=== PATIENT | female | born 1985 | race Two or more races ===

== ENCOUNTER 2019-12-28 11:14 | Outpatient (REF) | payer OTHER, SELFPAY ==
--- NOTE | 2019-12-28 11:20 | US_ITS ---
EXAMINATION: ULTRASOUND RIGHT UPPER EXTREMITY VENOUS STUDY. CLINICAL INFORMATION: Soft tissue swelling and pain. COMPARISON: None TECHNIQUE: Routine grayscale, color and Doppler imaging of right upper extremity veins performed. FINDINGS: There is normal color flow and augmentation seen in the right internal jugular, subclavian, axillary, brachial, basilic and cephalic veins. The radial and the ulnar veins are patent as well. The soft tissues are normal. US/US venous duplex UE RT IMPRESSION: Normal right upper extremity venous study. No evidence of DVT.
== END 2019-12-28 11:15 | disposition home or self-care (01) ==
LOC: HO.HMGCX 11:14
PROVIDERS: PCP Internal Medicine; Visit Provider Nurse Practitioner Family
DX: M79.89 Other specified soft tissue disorders (principal)
CPT/HCPCS: 93971

== ENCOUNTER 2020-02-25 17:18 | Outpatient (REF) | payer OTHER, SELFPAY | END 2020-02-25 17:19 | disposition home or self-care (01) | LOC: HO.LAB 17:18 | PROVIDERS: Visit Provider Internal Medicine | DX: Z20.828 Contact with and (suspected) exposure to other viral communicable diseases (principal) | CPT/HCPCS: C9803; U0003 ==

== ENCOUNTER 2020-03-12 09:31 | Outpatient (REF) | payer OTHER, SELFPAY | END 2020-03-12 09:32 | disposition home or self-care (01) | LOC: HO.LAB 09:31 | PROVIDERS: PCP Internal Medicine; Visit Provider Internal Medicine | DX: Z20.828 Contact with and (suspected) exposure to other viral communicable diseases (principal) | CPT/HCPCS: 36415; C9803; U0003 ==

== ENCOUNTER 2020-04-17 07:58 | Outpatient (REF) | payer OTHER, SELFPAY ==
--- NOTE | 2020-04-17 08:01 | EMG_ITS ---
Right median and ulnar motor and sensory studies were performed. Right radial sensory study was performed. Paraspinal muscles were tested. 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 MD ARIE Crane/BETZY / [id number]
== END 2020-04-17 07:59 | disposition home or self-care (01) ==
LOC: HO.NEURO 07:58
PROVIDERS: PCP Internal Medicine; Visit Provider Internal Medicine
DX: M79.641 Pain in right hand (principal)
CPT/HCPCS: 95886; 95909

== ENCOUNTER 2020-06-18 12:55 | Outpatient (REF) | payer OTHER, SELFPAY ==
[2020-06-18 13:37] LABS: COVID-19 Test Negative (Negative); IDNOW Serial# 55D5AD1C
== END 2020-06-18 12:56 | disposition home or self-care (01) ==
LOC: HO.LAB 12:55
PROVIDERS: Visit Provider Internal Medicine
DX: Z20.822 Contact with and (suspected) exposure to COVID-19 (principal)
CPT/HCPCS: 36415; 87635; C9803

== ENCOUNTER 2020-09-24 09:05 | Outpatient (REF) | payer OTHER, SELFPAY ==
[2020-09-24 09:44] LABS: MANUAL DIFF FLAG NO
[2020-09-24 09:53] LABS: Glucose Urine UA NEG (NEG); Leukocyte Esterase Urine NEG (NEG); Nitrite Urine NEG (NEG); PH 7.5 (5.0-8.0); Specific Gravity - Urine 1.015 (1.005-1.025); Urine Blood NEG (NEG); Urine Ketones NEG (NEG); Urine Protein NEG (NEG-TRACE)
[2020-09-24 09:53] LABS: Basophils Percent Auto 0.7 % (0-2); Eosinophils Absolute Auto 0.1 X10*3/uL (0.0-0.4); Eosinophils Percent Auto 1.1 % (0-4); Hematocrit 38.8 % (37-47); Hemoglobin 12.1 g/dl (12.0-16.0); Imm Gran Abs Auto 0.01 X10*3/uL (0.00-0.03); Imm Gran Pct Auto 0.2 % (0.0-0.4); Lymphocytes Absolute Auto 1.2 X10*3/uL (1.2-4.9); Lymphocytes Percent Auto 21.4 % (20-40); Mean Corpuscular HGB Conc 31.2 g/dl (31.0-35.0); Mean Corpuscular Hemoglobin 27.8 pg (27.0-33.0); Mean Platelet Volume 10.4 fL (9.4-12.3); Monocytes Absolute Auto 0.4 X10*3/uL (0.1-1.2); Monocytes Percent Auto 7.7 % (2-11); Neutrophils Absolute Auto 3.9 X10*3/uL (2.0-8.3); Neutrophils Percent Auto 68.9 % (45-73); Platelet Count 339 X10*3/uL (160-400); Red Blood Count 4.36 X10*6/uL (4.20-5.50); Red Cell Distribution Width 14.6 % (11.0-16.0); White Blood Count 5.6 X10*3/uL (4.8-10.8)
[2020-09-24 09:54] LABS: Appearance Urine CLEAR; Color Urine YELLOW
[2020-09-24 10:01] LABS: RBC Urine 0 /HPF (0); Squamous Epithelial Cell Urine TRACE /LPF; WBC Urine 0 /HPF (0-4)
[2020-09-24 10:04] LABS: Estimated Average Glucose 114 mg/dL; Hemoglobin A1c % 5.6 %
[2020-09-24 10:35] LABS: Alanine Aminotransferase 11 U/L (0-31); Albumin Level 4.1 g/dL (3.5-5.0); Alkaline Phosphatase 78 U/L (39-117); Anion Gap 11 (12-20); Aspartate Amino Transferase 13 U/L (5-31); Bilirubin Total 0.4 mg/dL (0.0-1.0); Blood Urea Nitrogen 8 mg/dL (9-16); Calcium 9.1 mg/dL (8.4-10.2); Carbon Dioxide 29 mmol/L (22-29); Chloride 104 mmol/L (96-108); Cholesterol 229 mg/dL; Estimated Glomerular Filt Rate > 60; Glucose Random 98 mg/dL (60-115); HDL Cholesterol 51 mg/dL; LDL Cholesterol Calculated 162 mg/dl; Sodium 140 mmol/L (135-145); Total Protein 7.5 g/dL (6.5-8.0); Triglycerides 82 mg/dL
[2020-09-24 11:01] LABS: Free T4 (Free Thyroxine) 0.91 ng/dL (0.71-1.85); Thyroid Stimulating Hormone 0.61 uIU/mL (0.32-4.0)
[2020-09-24 12:11] LABS: Vitamin D 25-OH Total 14.6 ng/mL (>30)
[2020-09-24 17:39] LABS: Folate 13.8 ng/mL (> or = 4.0); Vitamin B12 338 pg/mL (200-900)
== END 2020-09-24 09:06 | disposition home or self-care (01) ==
LOC: HO.LAB 09:05
PROVIDERS: PCP Internal Medicine; Visit Provider Internal Medicine
DX: E78.00 Pure hypercholesterolemia, unspecified (principal); R35.0 Frequency of micturition; E53.8 Deficiency of other specified B group vitamins; I10 Essential (primary) hypertension
CPT/HCPCS: 36415; 80053; 80061; 81001; 82306; 82607; 82746; 83036; 84439; 84443; 85025

== ENCOUNTER 2020-12-07 09:22 | Emergency (ER) | payer OTHER, SELFPAY ==
[2020-12-07 11:00] VITALS: BP 150/85; PULSE 82; RESP 18; TEMP 36.8; O2SAT 100; BMI 37.2
--- NOTE | 2020-12-07 11:38 | ED_ITS ---
HPI - General Adult General Chief complaint: General Medical Stated complaint: sore throat Time Seen by Provider: 12/07/20 10:55 Source: patient Mode of arrival: ambulatory Limitations: no limitations History of Present Illness HPI narrative: 35 y/o female with history of asthma, obesity, HTN, HLD who presents to the ER with 3 days of sore throat and not feeling well. She was not able to sleep well last night because she felt like there was a lump in her throat which got her scared. She denies trouble swallowing, breathing or talking. No change in voice. She is unvaccinated against COVID-19. She gets weekly tests at work and was last negative 3 days ago. No cough or SOB. No fever or chills. MD complaint: sore throat Onset (ago): day(s) (3) Location: mouth and neck Radiation: non-radiation Severity: moderate Severity scale (1-10): 5 Quality: aching Pain Consistency: intermittent Relieving factors: none Exacerbating factors: eating Associated symptoms: malaise Treatments prior to arrival: none Related Data Home Medications Medication Instructions Recorded Confirmed propranolol 10 mg tablet 10 mg PO BID 12/28/19 09/15/20 Previous Rx's Medication Instructions Recorded loratadine 10 mg tablet 10 mg PO DAILY #30 tab 02/25/20 albuterol sulfate 90 mcg/actuation 2 puff PO Q6H PRN #8.5 g 02/26/20 aerosol inhaler Allergies Allergy/AdvReac Type Severity Reaction Status Date / Time Seasonal Allergies Allergy Unknown Swelling Uncoded 01/28/20 13:13 Review of Systems Review of Systems: Constitutional: No Fever, No Chills ENT/Mouth: + sore throat, No Rhinorrhea, No Swallowing Difficulty Cardiovascular: No Chest Pain, No SOB Respiratory: No Cough, No Sputum, No Wheezing, No dyspnea Gastrointestinal: No Nausea, No Vomiting, No Diarrhea, No abdominal Paina Musculoskeletal: No joint pain, No Myalgias Skin: No Skin Lesions, No rash Neuro: No Weakness, No Numbness, No Dizziness, No Headache Psych: + Anxiety/Panic Heme/Lymph: No Bruising, No Lymphadenopathy PMFSH Past Medical History Medical History (Updated 12/07/20 @ 12:22 by SILVINO Felder) Allergic rhinitis Anxiety Asthma Hypercholesterolemia Hypertension Migraine Obesity (BMI 30-39.9) Somnambulism Vitamin D deficiency Surgical History H/O breast biopsy History of section History of tonsillectomy and adenoidectomy History of tubal ligation Family History Family History (Updated 01/23/20 @ 12:15 by EDUARDA Jang) Father No problems noted. Mother Hypertension CVD (cardiovascular disease) Diabetes Maternal Grandmother Lung cancer Maternal Aunt Breast cancer Social History Social History (Updated 09/15/20 @ 14:13 by Buck Monson MD) Housing: Apartment Alcohol intake: never Patient Tobacco Use Status: Never used Tobacco e-Cigarette/Vaping Use: Never Used Second Hand Smoke Exposure: No Advance Directives: No Advance Directives Information Provided: No Patient : No service: No Current occupational status: employed Physical Exam Vital Signs: Vital Signs: Last Vital Signs Temp 98.3 F 12/07/20 11:00 Pulse 82 12/07/20 11:00 Resp 18 12/07/20 11:00 BP 150/85 H 12/07/20 11:00 Pulse Ox 100 12/07/20 11:00 Body Mass Index 37.2 Appearance: Alert. Oriented X3. No acute distress. Eyes: Pupils equal, round and reactive to light. ENT: Pharynx with bilateral tonsillar swelling, mild erythema, no exudates, uvula is midline, moist mucus membranes. Neck: Normal inspection. Neck supple. No LAD CVS: Normal heart rate and rhythm. Pulses normal. Respiratory: No respiratory distress. Breath sounds normal. Skin: Skin warm and dry. Normal skin color. Normal skin turgor. No rashes. Extremities: No lower extremity edema. Neuro: Oriented X 3. Nonfocal Course Course Course Narrative: 35 y/o female who presents to the ER with 3 days of sore throat. Last night had sensation of a lump in her throat last night, now improved. Normal voice. Tonsils slightly enlarged on exam but no evidence of abscess. She is nontoxic appearing. COVID and Strep are pending. Reevaluation(s) Reevaluation #1: COVID and strep are negative. Most likely viral pharyngitis. Discussed management and course with patient - she is stable for discharge with supportive care. Medical Decision Making Lab Data Labs: Lab Results 12/07/20 12/07/20 Range/Units 11:22 11:22 COVID-19 (PAULINE) Negative (Negative) COVID-19 Clin Com See Note S. pyogenes GrpA HARLEY Negative (Negative) Critical Care Time Critical Care Time Critical Care Time: No Discharge Plan Discharge Clinical Impression: Pharyngitis Qualifiers: Pharyngitis/tonsillitis etiology: unspecified etiology Qualified Code(s): J02.9 - Acute pharyngitis, unspecified Patient Disposition: Home, Self-Care Instructions: Pharyngitis (ED) Additional Instructions: You were negative for COVID and Strep throat today. Recommend gargling with warm salt water several times per day Recommend over the counter Chloraseptic spray to help with sore throat Take Motrin and/or Tylenol as needed for pain. Follow up with your doctor this week as needed. If you develop new or worsening symptoms call 911 or come back to the ER for fur ther evaluation. Prescriptions: No Action loratadine 10 mg tablet 10 mg PO DAILY Qty: 30 RF: 5 albuterol sulfate 90 mcg/actuation HFA aerosol inhaler 2 puff PO Q6H PRN (Reason: bronchospasm) Qty: 8.5 RF: 0 propranolol 10 mg tablet 10 mg PO BID RF: 0
[2020-12-07 11:42] LABS: COVID-19 Test Negative (Negative)
[2020-12-07 12:18] LABS: IDNOW Serial# 9DD0AD1C; Strep A Nucleic Acid Negative (Negative)
== END 2020-12-07 12:42 | disposition home or self-care (01) ==
PROVIDERS: Emergency Provider Internal Medicine; PCP Internal Medicine
DX: J02.9 Acute pharyngitis, unspecified (principal); R53.81 Other malaise; Z79.899 Other long term (current) drug therapy; Z20.822 Contact with and (suspected) exposure to COVID-19
CPT/HCPCS: 36415; 87635; 87651; 99282; 99283

== ENCOUNTER → 2020-12-16 10:53 | Outpatient (BNVA) | payer OTHER, SELFPAY | PROVIDERS: PCP Internal Medicine; Referring Provider Internal Medicine; Visit Provider Nurse Practitioner Family | DX: G47.19 Other hypersomnia (principal); R06.83 Snoring; F51.3 Sleepwalking [somnambulism] | CPT/HCPCS: 99202 ==

== ENCOUNTER 2021-03-09 00:26 | Emergency (ER) | payer OTHER, SELFPAY ==
[2021-03-09 00:29] VITALS: BP 170/77; PULSE 86; RESP 18; TEMP 36.9; O2SAT 97; BMI 36.3
--- NOTE | 2021-03-09 00:32 | ECG_ITS ---
Test Reason : CHEST PAIN Blood Pressure : / mmHG Vent. Rate : 087 BPM Atrial Rate : 087 BPM P-R Int : 172 ms QRS Dur : 076 ms QT Int : 400 ms P-R-T Axes : 032 021 016 degrees QTc Int : 481 ms Normal sinus rhythm Prolonged QT Abnormal ECG When compared with ECG of 21-APR-2016 21:29, No significant change was found Referred By: Generic ED Physician Electronically Signed By:LUIGI LYNN MD
--- NOTE | 2021-03-09 00:35 | PC.NURSE ---
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
[2021-03-09 00:55] LABS: COVID-19 Test Positive (Negative); IDNOW Serial# 9DD0AD1C
== END 2021-03-09 02:55 | disposition left against medical advice (07) ==
PROVIDERS: Emergency Provider Emergency Medicine; PCP Internal Medicine
DX: U07.1 COVID-19 (principal); R20.0 Anesthesia of skin; R42 Dizziness and giddiness
CPT/HCPCS: 36415; 87635; 93005; 99282; 99283

== ENCOUNTER 2021-09-30 08:16 | Outpatient (REF) | payer OTHER, SELFPAY ==
[2021-09-30 08:36] LABS: MANUAL DIFF FLAG NO
[2021-09-30 08:48] LABS: Basophils Percent Auto 0.2 % (0-2); Eosinophils Absolute Auto 0.1 X10*3/uL (0.0-0.4); Hematocrit 35.4 % (37.0-47.0); Hemoglobin 11.2 g/dl (12.0-16.0); Imm Gran Abs Auto 0.01 X10*3/uL (0.00-0.03); Imm Gran Pct Auto 0.1 % (0.0-0.4); Lymphocytes Absolute Auto 1.2 X10*3/uL (1.2-4.9); Lymphocytes Percent Auto 13.5 % (20-40); Mean Corpuscular HGB Conc 31.6 g/dl (31.0-35.0); Mean Corpuscular Hemoglobin 27.8 pg (27.0-33.0); Mean Corpuscular Volume 87.8 fL (80.0-98.0); Mean Platelet Volume 10.6 fL (9.4-12.3); Monocytes Absolute Auto 0.5 X10*3/uL (0.1-1.2); Monocytes Percent Auto 5.9 % (2-11); Neutrophils Percent Auto 79.3 % (45-73); Platelet Count 346 X10*3/uL (160-400); Red Blood Count 4.03 X10*6/uL (4.20-5.50); Red Cell Distribution Width 16.8 % (11.0-16.0); Retic HGB Equivalent 27.4 pg (30.0-35.0); Reticulocyte Percent 1.5 % (0.5-1.8); Reticulocytes Absolute 0.058 X10*6/uL (0.026-0.095); White Blood Count 8.8 X10*3/uL (4.8-10.8)
[2021-09-30 09:00] LABS: Estimated Average Glucose 105 mg/dL; Hemoglobin A1c % 5.3 %
[2021-09-30 09:41] LABS: Alanine Aminotransferase 13 U/L (0-31); Albumin Level 3.6 g/dL (3.5-5.0); Alkaline Phosphatase 75 U/L (39-117); Anion Gap 11 (12-20); Aspartate Amino Transferase 10 U/L (5-31); Bilirubin Total 0.4 mg/dL (0.0-1.0); Blood Urea Nitrogen 12 mg/dL (9-16); Calcium 8.8 mg/dL (8.4-10.2); Carbon Dioxide 31 mmol/L (22-29); Chloride 101 mmol/L (96-108); Cholesterol 159 mg/dL; Estimated Glomerular Filt Rate > 60; Glucose Random 115 mg/dL (60-115); HDL Cholesterol 40 mg/dL; Iron 23 mcg/dL (30-160); LDL Cholesterol Calculated 103 mg/dl; Percent Iron Saturation 7 % (15-50); Potassium 3.6 mmol/L (3.3-5.1); Sodium 139 mmol/L (135-145); Total Iron Binding Capacity 349 mcg/dL (228-428); Total Protein 6.8 g/dL (6.5-8.0); Triglycerides 83 mg/dL; Unsaturated Iron Binding 326 ug/dL
[2021-09-30 09:49] LABS: Ferritin 25 ng/mL (10-122); Free T4 (Free Thyroxine) 0.92 ng/dL (0.71-1.85); Thyroid Stimulating Hormone 0.41 uIU/mL (0.32-4.0); Vitamin D 25-OH Total 37.5 ng/mL (>30)
[2021-09-30 10:03] LABS: Folate > 20.0 ng/mL (> or = 4.0); Vitamin B12 724 pg/mL (200-900)
== END 2021-09-30 08:17 | disposition home or self-care (01) ==
LOC: HO.LAB 08:16
PROVIDERS: PCP Internal Medicine; Visit Provider Internal Medicine
DX: H11.89 Other specified disorders of conjunctiva (principal); E78.00 Pure hypercholesterolemia, unspecified
CPT/HCPCS: 36415; 80053; 80061; 82306; 82607; 82728; 82746; 83036; 83540; 84439; 84443; 85025; 85045

== ENCOUNTER 2021-10-14 10:10 | Outpatient (REF) | payer OTHER, SELFPAY ==
[2021-10-14 10:39] LABS: Binax Internal Control QC Valid; Binax Now Covid-19 Ag Negative (Negative)
== END 2021-10-14 10:11 | disposition home or self-care (01) ==
LOC: HO.HMGCLDS 10:10
PROVIDERS: PCP Internal Medicine; Visit Provider Physician Assistant
DX: Z20.822 Contact with and (suspected) exposure to COVID-19 (principal); J02.9 Acute pharyngitis, unspecified
CPT/HCPCS: 87811; C9803

== ENCOUNTER 2022-04-20 07:42 | Outpatient (REF) | payer OTHER, SELFPAY ==
[2022-04-20 09:22] LABS: Hematocrit 34.2 % (37.0-47.0); Hemoglobin 10.7 g/dl (12.0-16.0); Mean Corpuscular HGB Conc 31.3 g/dl (31.0-35.0); Mean Corpuscular Volume 83.2 fL (80.0-98.0); Mean Platelet Volume 10.9 fL (9.4-12.3); Platelet Count 373 X10*3/uL (160-400); Red Blood Count 4.11 X10*6/uL (4.20-5.50); Red Cell Distribution Width 15.9 % (11.0-16.0); White Blood Count 8.2 X10*3/uL (4.8-10.8)
[2022-04-20 10:37] LABS: HCG Quantitative < 2 mIU/mL; TSH reflex Free T4 0.86 uIU/mL (0.32-4.0)
[2022-04-20 15:43] LABS: CT PCR NOT DETECTED (Not Detect.); NG PCR NOT DETECTED (Not Detect.)
[2022-04-21 04:24] LABS: Syphilis Screen Nonreactive (Nonreactive)
[2022-04-21 04:38] LABS: HBsAGNum1 0.26 S/CO (0.00-0.99); HIV AB/AG Nonreactive (Nonreactive); HIV Num 1 0.06 S/CO (0.00-0.99); Hepatitis B Surface Antigen Negative (Negative); ~HepC Num1 0.11 S/CO (0.00-0.79); ~Hepatitis C Antibody Nonreactive (Nonreactive)
[2022-04-21 09:06] LABS: BV Int Neg Control Negative (Negative)
[2022-04-21 09:07] LABS: BV Int Pos Control Positive (Positive)
[2022-04-22 09:39] LABS: HPV mRNA E6/E7 rflx Not Detected (Not Detected)
== END 2022-04-20 07:43 | disposition home or self-care (01) ==
LOC: HO.LAB 07:42
PROVIDERS: PCP Internal Medicine; Visit Provider Obstetrics & Gynecology
DX: Z01.419 Encounter for gynecological examination (general) (routine) without abnormal findings (principal); Z11.51 Encounter for screening for human papillomavirus (HPV); Z11.4 Encounter for screening for human immunodeficiency virus [HIV]; Z11.3 Encounter for screening for infections with a predominantly sexual mode of transmission; N93.9 Abnormal uterine and vaginal bleeding, unspecified
CPT/HCPCS: 0353U; 36415; 84443; 84702; 85027; 86780; 86803; 87340; 87389; 87480; 87510; 87624; 87660; 88142

== ENCOUNTER 2022-09-24 08:32 | Outpatient (AMB) | payer OTHER, SELFPAY ==
--- NOTE | 2022-09-24 08:51 | MHC.PC.OV ---
Vital Signs 09/24/22 08:52 Height 5 ft 3 in Weight 149 lb 4 oz BMI 26.4 BP 118/74 Blood Pressure Location Rt brachial Position Sitting Pulse 74 Pulse Source Pulse Oximeter Pulse Oximetry (%) 98 Intake Visit Reasons: Annual Exam Intake Note: pt is here for annual exam Accompanied by: Self / Same As Patient Allergies Seasonal Allergies Allergy (Unknown, Uncoded 09/24/22 08:54) Swelling Medication List - Last Reconciled 09/24/22 by Buck Monson MD albuterol sulfate 90 mcg/actuation 2 puffs PO Q6H PRN ascorbate calcium (vitamin C) 500 mg PO DAILY fexofenadine (Vijaya Allergy) 180 mg PO DAILY fluticasone propionate 50 mcg/actuation (Allergy Relief (fluticasone)) 2 sprays intranasal DAILY 1 month propranolol 10 mg PO BID Tobacco use date assessed: 09/24/22 Dental Screening Dental Screen Date: 09/24/22 Did you have a dental visit in the last 12 months?: No Did you have a dental problem in the last 6 months where you did not have access to dental care?: No Was dental information given to patient?: Patient declined HPI Annual Exam HPI Details 37-year-old obese female with hypertension asthma hypercholesterolemia coming in for physical exam. Last seen in September 2021. Patient has lost a lot a weight. Weight loss on diet. knee pain better noted 60 lb weight loss PFSH Medical History (Updated 09/24/22 @ 09:41 by Buck Monson MD) Abnormal uterine bleeding (AUB) Allergic rhinitis Alteration in vision Anxiety Arm pain, right Arm swelling Asthma Cervical cancer screening Dizziness Hypercholesterolemia Hypertension Left ear pain Migraine Obesity (BMI 30-39.9) Otitis media Pale conjunctiva Screen for STD (sexually transmitted disease) Snoring Somnambulism Tendonitis Vitamin D deficiency Well woman exam Surgical History H/O breast biopsy History of section History of tonsillectomy and adenoidectomy History of tubal ligation Family History Father No problems noted. 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 1. Little interest or pleasure in doing things: not at all 2. Feeling down, depressed, or hopeless: not at all 3. Trouble falling or staying asleep, or sleeping too much: not at all 4. Feeling tired or having little energy: not at all 5. Poor appetite or overeating: not at all 6. Feeling bad about yourself - or that you are a failure or have let yourself or your family down: not at all 7. Trouble concentrating on things, such as reading the newspaper or watching television: not at all 8. Moving or speaking so slowly that other people could have noticed. Or the opposite - being so fidgety or restless that you have been moving around a lot more than usual: not at all 9. Thoughts that you would be better off or of hurting yourself in some way: not at all Total score: 0 Depression Screening Interpretation: Negative 78256 - PHQ-9 Billing: Yes Source: Developed by Drs. Bharath Stokes, Theresa Junior, Marcos Hewitt and colleagues, with an educational lisbeth from [employer]. Thrive Questionnaire Date Thrive assessed: 09/24/22 I am a: Patient What is your living situation today?: I have a steady place to live Within the past 12 months, did the food you bought not last and you didn't have the money to get more?: Never true Within the past 12 months, did you worry whether your food would run out before you got money to buy more?: Never true Do you have trouble paying for medicines?: No Do you have trouble getting transportation to medical appointments?: No Do you have trouble paying your heating and electricity bill?: No Do you have trouble taking care of your child, family member or friend?: No Do you have trouble with day-to-day activities such as bathing, preparing meals, shopping, managing finances, etc.?: No Are you currently unemployed and looking for a job?: No Are you interested in more education?: No Please select the resources that you would like help with: None Currently or been in a relationship where the following occur: no concerns reported KELLY-7 AMB Questionnaire KELLY-7 Date KELLY - 7 assessed: 09/24/22 Feeling nervous, anxious, or on edge: 0 = Not at all Not being able to stop or control worryin = Not at all Worrying too much about different things: 0 = Not at all Trouble relaxin = Not at all Being so restless that it is hard to sit still: 0 = Not at all Becoming easily annoyed or irritable: 0 = Not at all Feeling afraid as if something awful might happen: 0 = Not at all Total KELLY-7 score (0-4 normal; 5-9 mild; 10-14 moderate; 15-21 severe): 0 Source: Developed by Drs. Bharath Stokes, Theresa Junior, Marcos Hewitt and colleagues, with an educational lisbeth from [employer]. Review of Systems Const Denies poor appetite and Denies weakness Eyes Denies no additional complaints ENT Reports Normal hearing present, Denies dizziness, Denies nasal congestion, Denies tinnitus and Denies sore throat Card Denies chest pain, Denies syncope, Denies rapid heart rate and Denies dyspnea Resp Denies cough and Denies dyspnea GI Denies change in stool character, Reports constipation, Denies diarrhea, Denies nausea and Denies vomiting Denies urinary frequency, Denies difficulty voiding and Denies dysuria Neuro Reports Normal hearing present, Denies confusion, Denies dizziness, Denies syncope and Denies weakness Psych Denies confusion Physical exam (Primary Care) Vital Signs: Last Vital Signs Pulse 74 09/24/22 08:52 BP 118/74 09/24/22 08:52 Pulse Ox 98 09/24/22 08:52 BMI result Body Mass Index 26.4 Pale palpebral conjunctivae Tobacco/Smoking Status: Tobacco use Status Tobacco use date assessed 09/24/22 09/24/22 08:58 Patient Tobacco Use Status Never used Tobacco 09/24/22 08:51 e-Cigarette/Vaping Use Never Used 09/24/22 08:51 PHQ-9: PHQ-9 Score PHQ-9: Total score 0 09/24/22 08:58 Depression Screening Interpretation: Negative Thrive Assessment: Date of Thrive Assessment Date Thrive assessed 09/24/22 09/24/22 08:58 Currently or been in a relationship where the following occur: no concerns reported Const General: No confusion Orientation/consciousness: No confusion HENMT Head: Yes normocephalic Ears: external ears normal and TM's normal bilaterally Face and sinus: Yes normal facial exam Mouth: moist mucous membranes Throat: Yes tonsils normal Eyes Conjunctivae: conjunctivae normal Pupils: Equal, round and reactive pupils present and Pupil accommodation reflex normal Direct Ophthalmoscopy: normal light reflex Neck Neck: No lymphadenopathy Thyroid: Thyroid normal Chest Chest palpation & inspection: normal inspection of the chest Resp Effort & Inspection: normal respiratory effort and no audible wheezes Auscultation: clear to auscultation bilaterally, no crackles, no wheezes and lung sounds not diminished Cardio Rate: regular rate Rhythm: regular rhythm Peripheral pulses: radial pulses present and dorsalis pedis present GI Palpation (GI): no masses Auscultation: normal bowel sounds and normoactive bowel sounds Rectal Exam - Female: deferred Skin General skin exam: no rashes or lesions noted Rashes: no rashes Neuro General: No confusion Cranial nerves: Yes Equal, round and reactive pupils present and Yes Normal hearing present Cognition (Neuro): normal cognition Gait exam (Neuro): Normal gait present Motor exam (neuro): 5/5 motor strength present throughout Deep tendon reflexes (DTR's): Right brachioradialis reflex intensity grade: 2+, Left brachioradialis reflex intensity grade: 2+, Right patellar reflex intensity grade: 2+ and Left patellar reflex intensity grade: 2+ Extrem General: No edema Assessment and Plan Assessment & Plan (1) Annual physical exam: Code(s): Z00.00 - Encounter for general adult medical examination without abnormal findings (2) Hypercholesterolemia: Code(s): E78.00 - Pure hypercholesterolemia, unspecified Plan: Avoid fried foods, chicken skin, eggs, butter margarine, pastries and meat. Be it pork or beef they have a lot of cholesterol will check for blood work (3) Hypertension: Code(s): I10 - Essential (primary) hypertension Qualifiers: Hypertension type: primary hypertension Qualified Code(s): I10 - Essential (primary) hypertension Plan: Continue with blood pressure medication. Decrease salt intake and exercise (4) Iron deficiency anemia: Code(s): D50.9 - Iron deficiency anemia, unspecified Plan: Retest blood work (5) Asthma: Code(s): J45.909 - Unspecified asthma, uncomplicated Qualifiers: Asthma severity: mild Asthma persistence: intermittent Asthma complication type: uncomplicated Qualified Code(s): J45.20 - Mild intermittent asthma, uncomplicated Plan: Continue with inhaler as needed (6) Migraine: Code(s): G43.909 - Migraine, unspecified, not intractable, without status migrainosus (7) Vision changes: Code(s): H53.9 - Unspecified visual disturbance Orders: Orders Vitamin B12 and Folate Today D50.9 - Iron deficiency anemia, unspecified Comprehensive Met. Panel Today E78.00 - Pure hypercholesterolemia, unspecified Ferritin Today D50.9 - Iron deficiency anemia, unspecified IRON PROFILE Today D50.9 - Iron deficiency anemia, unspecified Lipid Panel Today E78.00 - Pure hypercholesterolemia, unspecified Free T4 (Free Thyroxine) Today E78.00 - Pure hypercholesterolemia, unspecified Thyroid Stimulating Hormone Today E78.00 - Pure hypercholesterolemia, unspecified Vitamin D 25-OH Total Today E78.00 - Pure hypercholesterolemia, unspecified Complete Blood Count Auto Diff Today D50.9 - Iron deficiency anemia, unspecified Referrals Ophthalmology Referral H53.9 - Unspecified visual disturbance Medications: Changed From propranolol migraine 10 mg PO BID G43.909 - Migraine, unspecified, not intractable, without status migrainosus To propranolol 10 mg PO BID 180 tabs 1RF 90 days G43.909 - Migraine, unspecified, not intractable, without status migrainosus Coding Level of Care Code Est Pt Prev Care 18-39y(17212) Diagnoses Annual physical exam Z00.00 Hypercholesterolemia E78.00 Hypertension I10 Hypertension type: primary hypertension Iron deficiency anemia D50.9 Asthma J45.20 Asthma severity: mild Asthma persistence: intermittent Asthma complication type: uncomplicated Migraine G43.909 Vision changes H53.9
[2022-09-24 08:52] VITALS: BP 118/74; PULSE 74; O2SAT 98; BMI 26.4
== END 2022-09-24 09:47 | disposition home or self-care (01) ==
PROVIDERS: PCP Internal Medicine; Visit Provider Internal Medicine
DX: Z00.00 Encounter for general adult medical examination without abnormal findings (principal); I10 Essential (primary) hypertension; J45.20 Mild intermittent asthma, uncomplicated; G43.909 Migraine, unspecified, not intractable, without status migrainosus; E78.00 Pure hypercholesterolemia, unspecified; D50.9 Iron deficiency anemia, unspecified; H53.9 Unspecified visual disturbance
CPT/HCPCS: 99395

== ENCOUNTER 2022-12-27 10:44 | Outpatient (REF) | payer OTHER, SELFPAY ==
[2022-12-27 10:54] LABS: MANUAL DIFF FLAG NO
[2022-12-27 11:09] LABS: Basophils Absolute Auto 0.1 X10*3/uL (0.0-0.2); Basophils Percent Auto 0.8 % (0-2); Eosinophils Absolute Auto 0.1 X10*3/uL (0.0-0.4); Eosinophils Percent Auto 0.7 % (0-4); Hematocrit 32.6 % (37.0-47.0); Hemoglobin 9.9 g/dl (12.0-16.0); Imm Gran Abs Auto 0.03 X10*3/uL (0.00-0.03); Imm Gran Pct Auto 0.4 % (0.0-0.4); Lymphocytes Absolute Auto 1.9 X10*3/uL (1.2-4.9); Lymphocytes Percent Auto 21.8 % (20-40); Mean Corpuscular HGB Conc 30.4 g/dl (31.0-35.0); Mean Corpuscular Hemoglobin 24.7 pg (27.0-33.0); Mean Corpuscular Volume 81.3 fL (80.0-98.0); Mean Platelet Volume 10.4 fL (9.4-12.3); Monocytes Absolute Auto 0.6 X10*3/uL (0.1-1.2); Monocytes Percent Auto 7.1 % (2-11); Neutrophils Absolute Auto 5.9 x10*3/uL (2.0-8.3); Neutrophils Percent Auto 69.2 % (45-73); Platelet Count 359 X10*3/uL (160-400); Red Blood Count 4.01 X10*6/uL (4.20-5.50); Red Cell Distribution Width 15.9 % (11.0-16.0); White Blood Count 8.5 X10*3/uL (4.8-10.8)
[2022-12-27 11:47] LABS: Alanine Aminotransferase 12 U/L (0-31); Albumin Level 3.8 g/dL (3.5-5.0); Alkaline Phosphatase 58 U/L (39-117); Anion Gap 11 (12-20); Aspartate Amino Transferase 12 U/L (5-31); Bilirubin Total 0.4 mg/dL (0.0-1.0); Blood Urea Nitrogen 12 mg/dL (9-16); Calcium 8.9 mg/dL (8.4-10.2); Carbon Dioxide 26 mmol/L (22-29); Chloride 107 mmol/L (96-108); Cholesterol 200 mg/dL (<200); Estimated Glomerular Filt Rate > 60; Glucose Random 99 mg/dL (60-115); HDL Cholesterol 61 mg/dL (>40); Iron 36 mcg/dL (30-160); LDL Cholesterol Calculated 125 mg/dL (<100); Percent Iron Saturation 9 % (15-50); Potassium 3.6 mmol/L (3.3-5.1); Sodium 140 mmol/L (135-145); Total Iron Binding Capacity 394 mcg/dL (228-428); Total Protein 7.5 g/dL (6.5-8.0); Triglycerides 73 mg/dL (<150); Unsaturated Iron Binding 358 ug/dL
[2022-12-27 12:08] LABS: Ferritin 12 ng/mL (10-122); Free T4 (Free Thyroxine) 0.82 ng/dL (0.71-1.85); Thyroid Stimulating Hormone 0.52 uIU/mL (0.32-4.0); Vitamin D 25-OH Total 35.8 ng/mL (>30)
[2022-12-27 12:12] LABS: Folate 12.2 ng/mL (> or = 4.0); Vitamin B12 451 pg/mL (200-900)
== END 2022-12-27 10:45 | disposition home or self-care (01) ==
LOC: HO.LAB 10:44
PROVIDERS: PCP Internal Medicine; Visit Provider Internal Medicine
DX: E78.00 Pure hypercholesterolemia, unspecified (principal); D50.9 Iron deficiency anemia, unspecified
CPT/HCPCS: 36415; 80053; 80061; 82306; 82607; 82728; 82746; 83540; 84439; 84443; 85025

== ENCOUNTER 2023-01-05 20:48 | Emergency (ER) | payer OTHER, SELFPAY ==
[2023-01-05 20:56] VITALS: BP 152/86; PULSE 83; RESP 20; TEMP 36.9; O2SAT 100; BMI 25.7
[2023-01-05 21:15] LABS: MANUAL DIFF FLAG NO
[2023-01-05 21:16] LABS: Basophils Absolute Auto 0.1 X10*3/uL (0.0-0.2); Basophils Percent Auto 0.9 % (0-2); Eosinophils Absolute Auto 0.1 X10*3/uL (0.0-0.4); Eosinophils Percent Auto 1.6 % (0-4); Hematocrit 31.6 % (37.0-47.0); Hemoglobin 9.6 g/dl (12.0-16.0); Imm Gran Abs Auto 0.02 X10*3/uL (0.00-0.03); Imm Gran Pct Auto 0.3 % (0.0-0.4); Lymphocytes Absolute Auto 2.2 X10*3/uL (1.2-4.9); Lymphocytes Percent Auto 29.6 % (20-40); Mean Corpuscular HGB Conc 30.4 g/dl (31.0-35.0); Mean Corpuscular Hemoglobin 24.9 pg (27.0-33.0); Mean Corpuscular Volume 81.9 fL (80.0-98.0); Mean Platelet Volume 10.1 fL (9.4-12.3); Monocytes Absolute Auto 0.8 X10*3/uL (0.1-1.2); Monocytes Percent Auto 10.1 % (2-11); Neutrophils Absolute Auto 4.4 x10*3/uL (2.0-8.3); Neutrophils Percent Auto 57.5 % (45-73); Platelet Count 343 X10*3/uL (160-400); Red Blood Count 3.86 X10*6/uL (4.20-5.50); Red Cell Distribution Width 16.3 % (11.0-16.0); White Blood Count 7.6 X10*3/uL (4.8-10.8)
[2023-01-05 21:17] LABS: Appearance Urine Cloudy; Color Urine Yellow; Glucose Urine UA Negative (Negative); Leukocyte Esterase Urine Negative (Negative); Nitrite Urine Negative (Negative); PH 6.5 (5.0-9.0); UMIC TRIGGER UACC YES; Urine Blood Moderate (2+) (Negative); Urine Ketones Negative (Negative); Urine Protein Negative (Neg-Trace)
[2023-01-05 21:20] LABS: Bacteria Urine None Seen (None Seen); Hyaline Casts Urine 0-2 /LPF (0-2); WBC Urine 0-5 /HPF (0-5)
[2023-01-05 21:37] LABS: Anion Gap 13 (12-20); Blood Urea Nitrogen 14 mg/dL (9-16); Calcium 8.7 mg/dL (8.4-10.2); Carbon Dioxide 25 mmol/L (22-29); Chloride 108 mmol/L (96-108); Creatinine Clr Calc Pharmacy 102.3; Estimated Glomerular Filt Rate > 60; Glucose Random 86 mg/dL (60-115); HCG Quantitative < 2 mIU/mL; Potassium 3.8 mmol/L (3.3-5.1); Sodium 142 mmol/L (135-145)
[2023-01-06] MEDS: Acetaminophen 325 MG TABLET 975 MG PO (00:02)
[2023-01-06] MEDS: Ibuprofen 400 MG TABLET PO (00:03)
--- NOTE | 2023-01-06 00:19 | ED_ITS ---
HPI - Female Genitourinary General Chief complaint: Urogenital-Female Stated complaint: heavy feeling belly, bloody urine. hurts to void Time Seen by Provider: 01/05/23 23:07 Source: patient Mode of arrival: ambulatory History of Present Illness HPI Narrative: 37-year-old female who states that she has had suprapubic discomfort and heaviness without associated vaginal discharge and she denies any associated nausea, vomiting, fever or chills and denies any diarrhea or urinary symptoms. Related Data Home Medications Medication Instructions Recorded Confirmed fexofenadine 180 mg tablet 180 mg PO DAILY 04/19/22 09/24/22 (Vijaya Allergy) Previous Rx's Medication Instructions Recorded ascorbate calcium (vitamin C) 500 500 mg PO DAILY #90 tabs 10/14/21 mg tablet albuterol sulfate 90 mcg/actuation 2 puff PO Q6H PRN bronchospasm 12/04/21 aerosol inhaler #8.5 grams ascorbic acid (vitamin C) 500 mg 500 mg PO .QD #90 caps 12/27/22 capsule ferrous sulfate 325 mg (65 mg 325 mg PO DAILY #90 tabs 12/27/22 iron) tablet (Feosol) fluticasone propionate 50 2 spray intranasal DAILY 1 month 12/27/22 mcg/actuation nasal #16 grams spray,suspension (Allergy Relief (fluticasone)) propranolol 10 mg tablet 10 mg PO BID 90 days #180 tabs 12/27/22 Allergies Allergy/AdvReac Type Severity Reaction Status Date / Time Seasonal Allergies Allergy Unknown Swelling Uncoded 01/05/23 20:55 Review of Systems 2 Review of Systems: Pertinent positives and negatives as stated in HPI [facility] Past Medical History Source: nursing notes reviewed Medical History Screen for STD (sexually transmitted disease) Abnormal uterine bleeding (AUB) Well woman exam Alteration in vision Cervical cancer screening Otitis media Left ear pain Pale conjunctiva Dizziness Snoring Hypercholesterolemia Anxiety Asthma Somnambulism Hypertension Allergic rhinitis Migraine Obesity (BMI 30-39.9) Vitamin D deficiency Tendonitis Arm swelling Arm pain, right Surgical History History of tonsillectomy and adenoidectomy History of tubal ligation H/O breast biopsy History of section Family History Family History Father No problems noted. 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 GENERAL: Well developed, well nourished, in no acute distress. HEAD: Normocephalic/atraumatic EYES: PERRLA, EOMI i EARS: Ext canals without abnormality, TMs non-bulging and non-erythematous NOSE: Nares patent bilateral OROPHARYNX: no oral lesions noted, posterior pharynx clear NECK: Supple, no adenopathy LUNGS: Normal breath sounds. No adventitious sounds or accessory muscle use. SpO2<100> CARDIOVASCULAR: Regular rate and rhythm without noted murmurs ABDOMEN: Soft, non-tender, non-distended with bowel sounds, no masses, no hernia. MUSCULOSKELETAL: No tenderness, deformities, or effusions noted on gross inspection. EXTREMITIES: No cyanosis, clubbing or edema. SKIN: Inspection of the skin reveals no rashes NEUROLOGIC: Alert and oriented x 4. Strength and sensation to light touch were grossly intact x 4. Medications Administered Discontinued Medications Generic Name Dose Route Start Last Admin Trade Name Freq PRN Reason Stop Dose Admin Acetaminophen 975 mg 01/05/23 23:49 01/06/23 00:02 Acetaminophen 325 Mg Tablet PO 01/05/23 23:50 975 mg ONCE ONE Administration Ibuprofen 400 mg 01/05/23 23:49 01/06/23 00:03 Ibuprofen 400 Mg Tablet PO 01/05/23 23:50 400 mg ONCE ONE Administration Medical Decision Making Medical Decision Making [facility] Narrative: 37-year-old female with history and clinical presentation, DDX: Urinary tract infection, , no evidence or history to suggest renal colic/appendicitis/obstruction. I reviewed all investigations and hematologic indices are without leukocytosis and left shift, there is no thrombocytopenia and patient has a chronically stable normocytic anemia. Chemistry of disease are grossly within normal limits and there is no evidence of CAREN her electrolyte derangements. Beta hCG is undetectable. Urinalysis demonstrates blood but patient endorses that she is menstruating. She was offered combination analgesics and has had some improvement. My interpretation is that patient may be suffering from menstruation associated discomfort as there is no evidence of infection or . Differential Diagnosis Differential Diagnoses: The differential diagnosis associated with the presentation includes Please see the discussion above Admission/Observation Consideration of admission/observation: Escalation of care including admission/observation considered Please see the discussion above Lab Data MDM Lab Attestation statement: I reviewed the patient's lab results. Please see the discussion above 01/05/23 21:09 01/05/23 21:09 Labs: Lab Results 01/05/23 Range/Units 21:09 WBC 7.6 (4.8-10.8) X10*3/uL RBC 3.86 L (4.20-5.50) X10*6/uL Hgb 9.6 L (12.0-16.0) g/dl Hct 31.6 L (37.0-47.0) % MCV 81.9 (80.0-98.0) fL MCH 24.9 L (27.0-33.0) pg MCHC 30.4 L (31.0-35.0) g/dl RDW 16.3 H (11.0-16.0) % Plt Count 343 (160-400) X10*3/uL MPV 10.1 (9.4-12.3) fL Immature Gran % (Auto) 0.3 (0.0-0.4) % Neut % (Auto) 57.5 (45-73) % Lymph % (Auto) 29.6 (20-40) % Emanuel % (Auto) 10.1 (2-11) % Eos % (Auto) 1.6 (0-4) % Baso % (Auto) 0.9 (0-2) % Lymph # (Auto) 2.2 (1.2-4.9) X10*3/uL Emanuel # (Auto) 0.8 (0.1-1.2) X10*3/uL Eos # (Auto) 0.1 (0.0-0.4) X10*3/uL Baso # (Auto) 0.1 (0.0-0.2) X10*3/uL Abs Immat Gran (auto) 0.02 (0.00-0.03) X10*3/uL Absolute Neuts (auto) 4.4 (2.0-8.3) x10*3/uL Absolute Nucleated RBC 0.000 (0.0-0.012) X10*3/uL Nucleated RBC % (auto) 0.0 (0.0-0.2) /100WBC Sodium 142 (135-145) mmol/L Potassium 3.8 (3.3-5.1) mmol/L Chloride 108 (96-108) mmol/L Carbon Dioxide 25 (22-29) mmol/L Anion Gap 13 (12-20) BUN 14 (9-16) mg/dL Creatinine 0.68 (0.5-1.4) mg/dL Estim Creat Clear Calc 102.3 Estimated GFR > 60 Random Glucose 86 (60-115) mg/dL Calcium 8.7 (8.4-10.2) mg/dL Beta HCG, Quant < 2 mIU/mL Urine Color Yellow Urine Appearance Cloudy Urine pH 6.5 (5.0-9.0) Ur Specific [place] 1.020 (1.005-1.025) Urine Protein Negative (Neg-Trace) mg/dL Urine Glucose (UA) Negative (Negative) mg/dL Urine Ketones Negative (Negative) mg/dL Urine Blood Moderate (2+) H (Negative) Urine Nitrite Negative (Negative) Ur Leukocyte Esterase Negative (Negative) Urine RBC 11-20 H (0-2) /HPF Urine WBC 0-5 (0-5) /HPF Ur Squamous Epith Cells 3-5 (0-2) /HPF Urine Bacteria None Seen (None Seen) Hyaline Casts 0-2 (0-2) /LPF External Record Review External record reviewed: Outpatient record, Prior outpatient labs and Prior outpatient radiology Chronic Conditions Patient?s care impacted by: Hypertension Discharge Plan Discharge Clinical Impression: Suprapubic discomfort Patient Disposition: Home, Self-Care Instructions: Pelvic Pain in Women (ED) Additional Instructions: 1. Resume all home medications as prescribed. 2. Your workup today was negative for evidence to suggest urinary tract infection or intra-abdominal infection. 3. Please follow-up with primary care doctor in the next 1-2 days. Return to the ER for any worsening symptoms. Prescriptions: No Action ascorbate calcium (vitamin C) 500 mg tablet 500 mg PO DAILY Qty: 90 1RF albuterol sulfate 90 mcg/actuation HFA aerosol inhaler 2 puff PO Q6H PRN (Reason: bronchospasm) Qty: 8.5 0RF fluticasone propionate [Allergy Relief (fluticasone)] 50 mcg/actuation spray,suspension 2 spray intranasal DAILY 30 Days Qty: 16 8RF Rx Instructions: administer into each nostril propranolol 10 mg tablet 10 mg PO BID 90 Days Qty: 180 1RF ferrous sulfate [Feosol] 325 mg (65 mg iron) tablet 325 mg PO DAILY Qty: 90 1RF ascorbic acid (vitamin C) 500 mg capsule 500 mg PO .QD Qty: 90 3RF fexofenadine [Vijaya Allergy] 180 mg tablet 180 mg PO DAILY Referrals: Po,Buck Rubin MD [Primary Care Provider] -
--- NOTE | 2023-01-06 00:40 | PC.NURSE ---
pt a&ox4. respirations even and unlabored. at this time pt requesting to leave. provider aware. pt left without discharge papers.
== END 2023-01-06 00:41 | disposition home or self-care (01) ==
PROVIDERS: Emergency Provider Student in an Organized Health Care Education/Training Program; PCP Internal Medicine
DX: R10.30 Lower abdominal pain, unspecified (principal); I10 Essential (primary) hypertension; E78.00 Pure hypercholesterolemia, unspecified; Z79.899 Other long term (current) drug therapy
CPT/HCPCS: 36415; 80048; 81001; 84702; 85025; 99283

== ENCOUNTER 2023-01-24 11:19 | Outpatient (REF) | payer OTHER, SELFPAY ==
--- NOTE | ~2023-01-24 | US_ITS ---
EXAMINATION: US PELVIS CLINICAL INFORMATION: Abnormal uterine endovaginal bleeding; the the last menstrual period was on 01/01/2023. COMPARISON: Pelvic ultrasound dated 04/05/2018; the last menstrual period was on 12/24/2022. TECHNIQUE: Ultrasound of the pelvis is performed using both transabdominal and transvaginal transducers along with Doppler. Transvaginal imaging is performed due to inadequate visualization transabdominally. FINDINGS: Uterus: The uterus is anteverted and retroflexed. The uterus measures 14.7 x 5.5 x 7.4 cm. A regular homogeneous endometrium is identified measuring 1.0 cm. Small Nabothian cysts are seen within the cervix. FIBROIDS: There are 3 fibroids seen. 1. Location: Upper posterior body, myometrial. Size: 2.0 x 1.9 x 2.2 cm. Prior: Not seen. Fibroid characteristics: Hypoechoic. 2. Location: Posterior fundus, myometrial. Size: 2.3 x 2.3 x 2.0 cm. Prior: Not seen. Fibroid characteristics: Hypoechoic. 3. Location: Mid leftward body, myometrial. Size: 4.3 x 3.1 x 3.8 cm. Prior: 1.5 x 1.0 x 1.1 cm. Fibroid characteristics: Heterogeneously hypoechoic. Both ovaries are of normal size and echogenicity. The right ovary measures 3.7 x 1.7 x 2.9 cm for a volume of 9.5 mL. The left ovary measures 2.7 x 2.3 x 2.6 cm for a volume of 8.4 mL. There is a small amount of nonspecific free fluid in the cul-de-sac. No adnexal mass is seen. US/US pelvic and transvaginal IMPRESSION: 1. There is uterine fibroid disease, as detailed. 2. Nabothian cysts are seen within the cervix. 3. A small amount of nonspecific free fluid is seen within the cul-de-sac.
== END 2023-01-24 11:20 | disposition home or self-care (01) ==
LOC: HO.US 11:19
PROVIDERS: PCP Internal Medicine; Visit Provider Obstetrics & Gynecology
DX: N93.9 Abnormal uterine and vaginal bleeding, unspecified (principal)
CPT/HCPCS: 76830; 76856

== ENCOUNTER 2023-03-29 08:19 | Outpatient (AMB) | payer OTHER, SELFPAY ==
[2023-03-29 08:36] VITALS: BP 132/78; PULSE 70; O2SAT 100; BMI 28.5
--- NOTE | 2023-03-29 08:36 | MHC.PC.OV ---
Vital Signs 03/29/23 08:36 Height 5 ft 3 in Weight 161 lb BMI 28.5 BP 132/78 Blood Pressure Location Lt brachial Position Sitting Pulse 70 Pulse Source Pulse Oximeter Pulse Oximetry (%) 100 Oxygen Delivery Method Room Air Intake Visit Reasons: Anemia Sheet Cutter Required: No Allergies Seasonal Allergies Allergy (Unknown, Uncoded 03/29/23 08:36) Swelling Tobacco use date assessed: 03/29/23 Dental Screening Dental Screen Date: 03/29/23 HPI Anemia HPI Details 37-year-old overweight female with hypercholesterolemia hypertension asthma migraine last seen in September 2022. Noted weight gain. Patient follows up with Gynecology for abnormal uterine bleeding had an ultrasound done showing uterine fibroid. 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 How often do you have a drink containing alcohol?: Never 2. How many drinks containing alcohol do you have on a typical day when you are drinking?: 1 or 2 (0) 3. How often do you have six or more drinks on one occasion?: Never Total Score: 0 KELLY-7 AMB Questionnaire KELLY-7 Date KELLY - 7 assessed: 09/24/22 Source: Developed by Drs. Bharath Stokes, Theresa Junior, Marcos Hewitt and colleagues, with an educational lisbeth from [employer]. Physical exam (Primary Care) Vital Signs: Last Vital Signs Pulse 70 03/29/23 08:36 BP 132/78 03/29/23 08:36 Pulse Ox 100 03/29/23 08:36 Oxygen Delivery Method Room Air 03/29/23 08:36 BMI result Body Mass Index 28.5 Tobacco/Smoking Status: Tobacco use Status Tobacco use date assessed 03/29/23 03/29/23 08:41 Patient Tobacco Use Status Never used Tobacco 03/29/23 08:41 e-Cigarette/Vaping Use Never Used 03/29/23 08:41 Thrive Assessment: Date of Thrive Assessment Date Thrive assessed 03/29/23 03/29/23 08:41 Const General: alert; No acute distress Eyes Conjunctivae: conjunctivae normal Resp Auscultation: clear to auscultation bilaterally Cardio Rate: regular rate Rhythm: regular rhythm GI Inspection: Yes normal to inspection Extrem General: Yes normal to inspection and No edema Assessment and Plan Assessment & Plan (1) Uterine fibroid: Comment: January 2023 ultrasound Code(s): D25.9 - Leiomyoma of uterus, unspecified Qualifiers: Uterine leiomyoma location: intramural, submucous, and subserous Qualified Code(s): D25.1 - Intramural leiomyoma of uterus; D25.0 - Submucous leiomyoma of uterus; D25.2 - Subserosal leiomyoma of uterus Plan: Patient follows up with Gynecology (2) Iron deficiency anemia: Code(s): D50.9 - Iron deficiency anemia, unspecified Plan: Continue with iron and vitamin-C and will need retesting. Patient can not tolerate the present preparation of iron will try changing. (3) Abnormal uterine bleeding (AUB): Code(s): N93.9 - Abnormal uterine and vaginal bleeding, unspecified Plan: Continue to follow-up with OB Gynecology (4) Hypertension: Code(s): I10 - Essential (primary) hypertension Qualifiers: Hypertension type: primary hypertension Qualified Code(s): I10 - Essential (primary) hypertension Plan: Continue with blood pressure medication. Decrease salt intake and exercise patient on propranolol 10 mg twice a day (5) Asthma: Code(s): J45.909 - Unspecified asthma, uncomplicated Qualifiers: Asthma severity: mild Asthma persistence: intermittent Asthma complication type: uncomplicated Qualified Code(s): J45.20 - Mild intermittent asthma, uncomplicated Plan: Continue with inhaler as needed (6) Hypercholesterolemia: Code(s): E78.00 - Pure hypercholesterolemia, unspecified Plan: Avoid fried foods, chicken skin, eggs, butter margarine, pastries and meat. Be it pork or beef they have a lot of cholesterol LDL goal of less than 130 and triglyceride of less than 150 Orders: Orders Reticulocyte Count 6 Months D50.9 - Iron deficiency anemia, unspecified Complete Blood Count Auto Diff 6 Months D50.9 - Iron deficiency anemia, unspecified Comprehensive Met. Panel 6 Months D50.9 - Iron deficiency anemia, unspecified Ferritin 6 Months D50.9 - Iron deficiency anemia, unspecified IRON PROFILE 6 Months D50.9 - Iron deficiency anemia, unspecified Vitamin B12 and Folate 6 Months D50.9 - Iron deficiency anemia, unspecified Medications: New ferrous sulfate ER (Slow Fe) 137 mg PO .qd 30 days 30 tabs 5RF D50.9 - Iron deficiency anemia, unspecified Discontinued ferrous sulfate (Feosol) Discontinued Reason: Patient Refused 325 mg PO DAILY 90 tabs 1RF D50.9 - Iron deficiency anemia, unspecified Coding Level of Care Code Est Pt Level 4 (65122) Diagnoses Intramural, submucous, and subserous leiomyoma of uterus D25.1; D25.0; D25.2 Uterine leiomyoma location: intramural, submucous, and subserous Iron deficiency anemia D50.9 Abnormal uterine bleeding (AUB) N93.9 Primary hypertension I10 Hypertension type: primary hypertension Mild intermittent asthma without complication J45.20 Asthma severity: mild Asthma persistence: intermittent Asthma complication type: uncomplicated Hypercholesterolemia E78.00
== END 2023-03-29 09:11 | disposition home or self-care (01) ==
PROVIDERS: PCP Internal Medicine; Visit Provider Internal Medicine
DX: D25.1 Intramural leiomyoma of uterus (principal); D50.9 Iron deficiency anemia, unspecified; N93.9 Abnormal uterine and vaginal bleeding, unspecified; I10 Essential (primary) hypertension; J45.20 Mild intermittent asthma, uncomplicated; E78.00 Pure hypercholesterolemia, unspecified
CPT/HCPCS: 99214

== ENCOUNTER 2023-04-12 09:41 | Outpatient (REF) | payer OTHER, SELFPAY | END 2023-04-12 09:42 | disposition home or self-care (01) | LOC: HO.LNP 09:41 | PROVIDERS: PCP Internal Medicine; Visit Provider Obstetrics & Gynecology | DX: N93.9 Abnormal uterine and vaginal bleeding, unspecified (principal) | CPT/HCPCS: 58100; 81025; 88305 ==

== ENCOUNTER 2023-04-12 09:41 | Outpatient (AMB) | payer OTHER, SELFPAY ==
--- NOTE | 2023-04-12 09:50 | A.OFFVIS_ITS ---
Intake Vital Signs 04/12/23 09:54 Height 5 ft 3 in Weight 160 lb 14.999 oz BMI 28.5 BP 110/70 Intake Visit Reasons: Ultrasound follow up/EMB Allergies Seasonal Allergies Allergy (Unknown, Uncoded 03/29/23 08:36) Swelling HPI HPI Comments History of Present Illness Details Presenting for endometrial biopsy PENDING SALE TO [facility] Medical History (Updated 03/29/23 @ 09:10 by Buck Monson MD) Abnormal uterine bleeding (AUB) Screen for STD (sexually transmitted disease) Well woman exam Alteration in vision Cervical cancer screening Otitis media Left ear pain Pale conjunctiva Dizziness Snoring Hypercholesterolemia Anxiety Asthma Somnambulism Hypertension Allergic rhinitis Migraine Obesity (BMI 30-39.9) Vitamin D deficiency Tendonitis Arm swelling Arm pain, right Surgical History History of tonsillectomy and adenoidectomy History of tubal ligation H/O breast biopsy History of section Family History Father No problems noted. 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 hysteroscopy D&C) & the risks were discussed with the patient inclu ding but not limited: pain, uterine perforation, bleeding, infection, possible injury to bladder, bowel, ureter, possible need for blood transfusion with all its possible risks. The patient verbalized understanding all questions answered and signed consent. Urine test done in the office was negative The patient was placed into the dorsal lithotomy position; a speculum was inserted in the vagina. Using aseptic technique for the procedure, the cervix was cleansed with Betadine. The anterior lip of the cervix was grasped with a single tooth tenaculum. The uterus was sounded to 7 cm with a 4 mm Pipelle was used. Tissues samples were obtained and placed in formalin, in a patient labeled container and sent to the pathology department. At the end of the procedure, there was minimal bleeding noted The patient tolerated the procedure well and was discharged in good condition with the following instructions: Nothing in the vagina until the bleeding stops. No sex until the bleeding stops, to call if any of the following occurs: fever (>100.4), flu-like symptoms, abdominal pain, heavy bleeding, four smelling vaginal discharge. The patient was instructed to schedule a Follow up appointment in 2 weeks to discuss pathology results of the biopsy and treatment options. This note was generated with a voice recognition program. Some errors may have been overlooked during the review of this note. Sometimes these errors may affect the content or meaning of a given sentence. [id number] Biopsy Assessment & Plan Assessment & Plan (1) Abnormal uterine bleeding (AUB): Code(s): N93.9 - Abnormal uterine and vaginal bleeding, unspecified Plan: EMB done, see procedure note Orders: Orders AMB Endometrial Biopsy Today N93.9 - Abnormal uterine and vaginal bleeding, unspecified Coding Level of Care Code Procedure Only Diagnoses Abnormal uterine bleeding (AUB) N93.9 CPT Codes Endometrial Biopsy - CPT: 23741-[id number] Biopsy ([id number])
[2023-04-12 09:54] VITALS: BP 110/70; BMI 28.5
== END 2023-04-12 10:30 | disposition home or self-care (01) ==
LOC: HO.HWS 09:41
PROVIDERS: PCP Internal Medicine; Visit Provider Obstetrics & Gynecology
DX: N93.9 Abnormal uterine and vaginal bleeding, unspecified (principal); Z32.02 Encounter for pregnancy test, result negative
CPT/HCPCS: 58100

== ENCOUNTER 2023-04-14 11:23 | Outpatient (AMB) | payer OTHER, SELFPAY ==
--- NOTE | 2023-04-14 11:28 | A.OFFVIS_ITS ---
Intake Vital Signs 04/14/23 11:29 Height 5 ft 3 in Weight 161 lb BMI 28.5 BP 120/72 Intake Visit Reasons: pre op Tool Design Drafter Required: No Oracle Adf Consultant: Oracle Adf Consultant Present Allergies Seasonal Allergies Allergy (Unknown, Uncoded 04/14/23 11:30) Swelling Is last menstrual period known: Yes Last menstrual period: 04/11/23 Post menopausal: No Patient : No Do you need a note to return to daycare/school/sports/work: Yes (for surgery on tuesday) HPI HPI Comments History of Present Illness Details The patient is presenting after endometrial biopsy. The patient has no complaints, no vaginal bleeding, no feverishness chills or abdominal pain. Endo metrial biopsy pathology showed the following: Endometrium, biopsy: Scant benign endometrium with breakdown and focal squamous metaplasia, endocervical glandular epithelium, and abundant blood (see comment). COMMENT: No definitive atypia or carcinoma is identified however, squamous morular metaplasia can be associated with atypical hyperplasia, neoplasia or benign processes. The tissue is scant and may not be telephone services sales representative of the endometrium. Short-term follow-up with a repeat endometrial sample, as clinically appropriate [facility] Medical History (Updated 04/14/23 @ 11:31 by Deuce Madrid MD) Abnormal uterine bleeding (AUB) Screen for STD (sexually transmitted disease) Well woman exam Alteration in vision Cervical cancer screening Otitis media Left ear pain Pale conjunctiva Dizziness Snoring Hypercholesterolemia Anxiety Asthma Somnambulism Hypertension Allergic rhinitis Migraine Obesity (BMI 30-39.9) Vitamin D deficiency Tendonitis Arm swelling Arm pain, right Surgical History History of tonsillectomy and adenoidectomy History of tubal ligation H/O breast biopsy History of section Family History Father No problems noted. 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 [employer] Sexual orientation: Straight/Heterosexual Gender identity: Female Cognitive needs: No Hearing needs: No Vision needs: Yes Female Reproductive History Menstrual Age of Menarche: 11 Date of last menstrual period: 04/11/23 control method: permanent sterilization Total pregnancies: 2 Full term: 2 Date of last pap smear: 04/20/22 (negative) Review of Systems Card Reports as per HPI and Reports no additional complaints Resp Reports as per HPI and Reports no additional complaints GI Reports as per HPI and Reports no additional complaints Reports as per HPI Physical Exam Vital Signs: BMI result Body Mass Index 28.5 Const General: cooperative, healthy appearing and comfortable Resp Effort & Inspection: normal respiratory effort Auscultation: clear to auscultation bilaterally Percussion: percussion normal Cardio Palpation: normal PMI Rate: regular rate Rhythm: regular rhythm Heart sounds: no murmurs and no rubs Peripheral pulses: Peripheral pulses 2+ throughout GI Inspection: Yes normal to inspection Palpation (GI): Soft to palpation, nontender, no guarding, not rigid and No hepatosplenomegaly present Percussion: Yes normal to percussion Auscultation: normal bowel sounds Rectal Exam - Female: deferred Assessment & Plan Assessment & Plan (1) Abnormal uterine bleeding (AUB): Comment: Squamous Morules insufficent emb path Code(s): N93.9 - Abnormal uterine and vaginal bleeding, unspecified Plan: Discussed with the patient the results the EMB pathology, possible association of squamous morule metaplasia with endometrial hyperplasia and/or malignancy, recommended hysteroscopy D&C possible polypectomy/myomectomy. Discussed with the patient the procedure , all benefits and risks including but not limited to inability to complete the procedure , insufficient endometrial tissue for a complete evaluation of the endometrial cavity , bleeding, infection, possible need for blood transfusion with all its risk ( HIV,syphilis, Hepatitis, anaphylaxis shock, others..), injury to bladder, rectum, possible need for laparoscopy/laparotomy or hysterectomy. The patient verbalized understanding and signed the consent. Instructions given the patient to schedule a 2 week postoperative appointment Coding Level of Care Code Est Pt Level 3 (10497) Diagnoses Abnormal uterine bleeding (AUB) N93.9
[2023-04-14 11:29] VITALS: BP 120/72; BMI 28.5
== END 2023-04-14 11:42 | disposition home or self-care (01) ==
LOC: HO.HWS 11:23
PROVIDERS: PCP Internal Medicine; Visit Provider Obstetrics & Gynecology
DX: N93.9 Abnormal uterine and vaginal bleeding, unspecified (principal)
CPT/HCPCS: 99213

== ENCOUNTER → 2023-04-14 11:23 | Outpatient (BNVA) | payer OTHER, SELFPAY | PROVIDERS: PCP Internal Medicine; Visit Provider Obstetrics & Gynecology | DX: N93.9 Abnormal uterine and vaginal bleeding, unspecified (principal) | CPT/HCPCS: 99212 ==

== ENCOUNTER 2023-09-13 08:12 | Outpatient (AMB) | payer OTHER, SELFPAY ==
[2023-09-13 08:17] VITALS: BP 110/70; BMI 33.5
--- NOTE | 2023-09-13 08:17 | MHC.OFFVIS ---
Vital Signs 09/13/23 08:17 Height 5 ft 3 in Weight 189 lb BMI 33.5 BP 110/70 Intake Visit Reasons: pre op Forming Tube Selector Required: No Information Interpreted: non-clinical & clinical Datapower Developer: Datapower Developer Present Accompanied by: Self / Same As Patient Allergies Seasonal Allergies Allergy (Unknown, Uncoded 09/13/23 08:22) Swelling Is last menstrual period known: Yes Last menstrual period: 09/12/23 Post menopausal: No Patient : No Do you need a note to return to daycare/school/sports/work: Yes (for surgery on tuesday) HPI Comments Details: The patient is presenting after endometrial biopsy. The patient has no complaints, no vaginal bleeding, no feverishness chills or abdominal pain. The endometrial biopsy pathology report showed the following: Endometrium, biopsy: Scant benign endometrium with breakdown and focal squamous metaplasia, endocervical glandular epithelium, and abundant blood (see comment). COMMENT: No definitive atypia or carcinoma is identified however, squamous morular metaplasia can be associated with atypical hyperplasia, neoplasia or benign processes. The tissue is scant and may not be telesales representative of the endometrium. Short-term follow-up with a repeat endometrial sample, as clinically appropriate [facility] Medical History Abnormal uterine bleeding (AUB) Screen for STD (sexually transmitted disease) Well woman exam Alteration in vision Cervical cancer screening Otitis media Left ear pain Pale conjunctiva Dizziness Snoring Hypercholesterolemia Anxiety Asthma Somnambulism Hypertension Allergic rhinitis Migraine Obesity (BMI 30-39.9) Vitamin D deficiency Tendonitis Arm swelling Arm pain, right Surgical History History of tonsillectomy and adenoidectomy History of tubal ligation H/O breast biopsy History of section Family History Father No problems noted. Mother Hypertension CVD (cardiovascular disease) Diabetes Maternal Grandmother Lung cancer Maternal Aunt Breast cancer Social History Household Members: Children Housing: Apartment Alcohol intake: current Patient Tobacco Use Status: Never used Tobacco e-Cigarette/Vaping Use: Never Used Second Hand Smoke Exposure: No service: No Current occupational status: employed Current occupation: [employer] Sexual orientation: Straight/Heterosexual Gender identity: Female Cognitive needs: No Hearing needs: No Vision needs: Yes Female Reproductive History Menstrual Age of Menarche: 11 Date of last menstrual period: 09/12/23 control method: permanent sterilization Total pregnancies: 2 Full term: 2 Review of Systems Card Reports as per HPI and Reports no additional complaints Resp Reports as per HPI and Reports no additional complaints GI Reports as per HPI and Reports no additional complaints Reports as per HPI Physical Exam Const General: cooperative, healthy appearing and comfortable Resp Effort & Inspection: normal respiratory effort Auscultation: clear to auscultation bilaterally Percussion: percussion normal Cardio Palpation: normal PMI Rate: regular rate Rhythm: regular rhythm Heart sounds: no murmurs and no rubs Peripheral pulses: Peripheral pulses 2+ throughout GI Inspection: Yes normal to inspection Palpation (GI): Soft to palpation, nontender, no guarding, not rigid and No hepatosplenomegaly present Percussion: Yes normal to percussion Auscultation: normal bowel sounds Rectal Exam - Female: deferred Assessment & Plan Assessment & Plan (1) Abnormal uterine bleeding (AUB): Comment: Squamous Morules insufficent emb path Code(s): N93.9 - Abnormal uterine and vaginal bleeding, unspecified Category: Medical Plan: Discussed with the patient the EMB pathology showing squamous more use and its associated possible endometrial hyperplasia or malignancy. The negative predictive value, positive predictive value, Sensitivity, specificity of using ultrasound measurement of endometrial stripe to detecting endometrial pathology including hyperplasia , polyp or cancer were discussed with the patient. Recommended to the patient that the next step is an endometrial sampling via hysteroscopy D&C possible polypectomy versus endometrial biopsy to r/o endometrial pathology including hyperplasia or cancer. All the pros and cons risks and benefits of each approach were discussed with the patient, endometrial biopsy being less invasive, office procedure with less sensitivity and inability diagnose a polyp and removal versus hysteroscopy done under anesthesia more invasive more sensitive to endometrial cancer and possibility of diagnosing and endometrial polyp with the possibility of polypectomy. All questions were answered pt verbalized understanding and decided to proceed with hysteroscopy D&C possible polypectomy/myomectomy. Discussed with the patient the procedure , all benefits and risks including but not limited to inability to complete the procedure , insufficient endometrial tissue for a complete evaluation of the endometrial cavity , bleeding, infection, possible need for blood transfusion with all its risk ( HIV,syphilis, Hepatitis, anaphylaxis shock, others..), injury to bladder, rectum, possible need for laparoscopy/laparotomy or hysterectomy. The patient verbalized understanding and signed the consent. Instructions given the patient to stay NPO after midnight the day prior to the procedure and to take only the specific medication (s) discussed the morning of the surgical procedure and to schedule a 2 week postoperative appointment Coding Level of Care Code Est Pt Level 3 (41438) Diagnoses Abnormal uterine bleeding (AUB) N93.9
== END 2023-09-13 08:40 | disposition home or self-care (01) ==
LOC: HO.HWS 08:12
PROVIDERS: PCP Internal Medicine; Visit Provider Obstetrics & Gynecology
DX: N93.9 Abnormal uterine and vaginal bleeding, unspecified (principal)
CPT/HCPCS: 99213

== ENCOUNTER → 2023-09-13 08:12 | Outpatient (BNVA) | payer OTHER, SELFPAY | PROVIDERS: PCP Internal Medicine; Visit Provider Obstetrics & Gynecology | DX: N93.9 Abnormal uterine and vaginal bleeding, unspecified (principal); Z98.890 Other specified postprocedural states | CPT/HCPCS: 99212 ==

== ENCOUNTER 2023-09-20 14:38 | Outpatient (AMB) | payer OTHER, SELFPAY ==
[2023-09-20 15:47] VITALS: BP 122/76; PULSE 73; TEMP 36.7; O2SAT 98; BMI 33.5
--- NOTE | 2023-09-20 15:47 | MHC.OFFWIV ---
Intake Vital Signs 09/20/23 15:47 Height 5 ft 3 in Weight 189 lb BMI 33.5 BP 122/76 Blood Pressure Location Rt brachial Position Sitting Pulse 73 Pulse Source Pulse Oximeter Temp 98.0 F Temp Source Oral Pulse Oximetry (%) 98 Intake Visit Reasons: EP Lt Knee pain Intake Note: pt is here for left knee pain after carrying step daughter Patient Tobacco Use Status: Never used Tobacco Allergies Seasonal Allergies Allergy (Unknown, Uncoded 09/20/23 15:48) Swelling Do you need a note to return to daycare/school/sports/work: No HPI HPI Comments History of Present Illness Details This is a 38-year-old female presenting for evaluation of left knee pain. Patient states on Tuesday she had the sudden onset of left knee pain when standing from a seated position. Patient states that her pain was exacerbated on Tuesday when she was carrying her stepdaughter upstairs. Patient states that the pain is worse with ambulation. Patient has been taking ibuprofen with minimal relief of her discomfort. Patient denies any falls direct injury or trauma. Patient states the pain is in the front of her knee. [facility] Medical History Abnormal uterine bleeding (AUB) Screen for STD (sexually transmitted disease) Well woman exam Alteration in vision Cervical cancer screening Otitis media Left ear pain Pale conjunctiva Dizziness Snoring Hypercholesterolemia Anxiety Asthma Somnambulism Hypertension Allergic rhinitis Migraine Obesity (BMI 30-39.9) Vitamin D deficiency Tendonitis Arm swelling Arm pain, right Surgical History History of tonsillectomy and adenoidectomy History of tubal ligation H/O breast biopsy History of section Family History Father No problems noted. 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 Skin/Breast Reports system reviewed and no additional complaints, except as documented Psych Reports no additional complaints Physical Exam Vital Signs: Last Vital Signs Temp 98.0 F 09/20/23 15:47 Pulse 73 09/20/23 15:47 BP 122/76 09/20/23 15:47 Pulse Ox 98 09/20/23 15:47 BMI result Body Mass Index 33.5 Const General: cooperative, healthy appearing, comfortable, no acute distress, well developed, alert, awake and Physically active Nutritional Appearance: average body habitus Orientation/consciousness: patient oriented x3 Limitations: no limitations Skin General skin exam: no rashes or lesions noted Neuro General: patient oriented x3 Extrem Left lower extremity: normal to inspection, full ROM (passive ROM left knee intact) and knee Details: normal to inspection, normal ROM, knee ligament exam normal and other (pain to palpation of the central left knee joint; positive ballottement); no swelling and no unusual warmth; no edema and joint enlargement noted Psych Appearance: grossly normal Mental Status: mental status grossly normal Insight: Good insight present (Psych) Judgement: Good judgement present (Psych) Assessment & Plan Assessment & Plan (1) Left anterior knee pain: Comment: Patient's history coupled with her examination is consistent with a left knee joint effusion. Dani bandage applied in the office. Code(s): M25.562 - Pain in left knee Plan: Patient is declining prescription medications and it is therefore advised that she take ibuprofen 600 mg every 6 hours and keep her left lower extremity elevated while at rest. Patient will utilize Dani bandage daily for the next 5-7 days. Coding Level of Care Code Est Pt Level 3 (80238) Diagnoses Left anterior knee pain M25.562 Time Spent (min) 25
== END 2023-09-20 16:00 | disposition home or self-care (01) ==
PROVIDERS: PCP Internal Medicine; Visit Provider Physician Assistant
DX: M25.562 Pain in left knee (principal)
CPT/HCPCS: 99213

== ENCOUNTER 2023-09-23 08:17 | Day surgery (SDC) | payer OTHER, SELFPAY ==
[2023-09-23 08:35] LABS: UPreg QC Valid YES; Urine Pregnancy NEGATIVE (NEGATIVE)
[2023-09-23 08:45] VITALS: BMI 33.5
[2023-09-23 08:55] VITALS: BP 131/60; PULSE 73; RESP 16; TEMP 37.6; O2SAT 97
[2023-09-23] MEDS: Lactated Ringers 1,000 ML 100 ML IVCONT (08:57)
--- NOTE | 2023-09-23 09:20 | P.CONAN_ITS ---
Documented by User: Josy Gates NP 09/22/23 12:57 HPI - Anesthesia Eval Consult details Narrative: 38yo F for D&C Hysteroscopy,possible myomectomy,possible polypectomy, PMFSH Active Problems Active Problems: All Active Problems Left anterior knee pain (Acute) Abnormal uterine bleeding (AUB) (Acute) Uterine fibroid (Acute) Vision changes (Acute) Migraine (Acute) Annual physical exam (Acute) Iron deficiency anemia (Acute) COVID-19 virus infection (Acute ~03/2021) Excessive daytime sleepiness (Acute) Somnambulism (Acute) Frequency of micturition (Acute) Carpal tunnel syndrome (Acute) Vitamin B12 deficiency (Acute) Hypercholesterolemia (Acute) Asthma (Acute) Hypertension (Acute) Past Medical History Medical History Abnormal uterine bleeding (AUB) Screen for STD (sexually transmitted disease) Well woman exam Alteration in vision Cervical cancer screening Otitis media Left ear pain Pale conjunctiva Dizziness Snoring Hypercholesterolemia Anxiety Asthma Somnambulism Hypertension Allergic rhinitis Migraine Obesity (BMI 30-39.9) Vitamin D deficiency Tendonitis Arm swelling Arm pain, right Family History Family History Father No problems noted. Mother Hypertension CVD (cardiovascular disease) Diabetes Maternal Grandmother Lung cancer Maternal Aunt Breast cancer Surgical History Surgical History History of tonsillectomy and adenoidectomy History of tubal ligation H/O breast biopsy History of section Social History Social History Household Members: Children Housing: Apartment Alcohol intake: current Alcohol intake frequency: holidays/special occasions only Patient Tobacco Use Status: Never used Tobacco e-Cigarette/Vaping Use: Never Used Second Hand Smoke Exposure: No Use of substances other than those prescribed or required for medical reasons: No Are you DNR?: No Advance Directives: No Advance Directives Information Provided: Yes Advance Directives on File: No service: No Current occupational status: employed 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 Sexual orientation: Straight/Heterosexual Gender identity: Female Cognitive needs: No Hearing needs: No Vision needs: Yes Meds Allergies Allergy/AdvReac Type Severity Reaction Status Date / Time Seasonal Allergies Allergy Unknown Swelling Uncoded 09/20/23 15:48 Home Medications ?Medication ?Instructions ?Recorded ?Confirmed ?Last Taken ?Type fexofenadine 180 mg tablet 180 mg PO DAILY 04/19/22 09/24/22 Unknown History (Vijaya Allergy) Assessment and Plan Assessment Anesthesia Assessment: Chart Reviewed Documented by User: Hillary Alexander, DO 09/23/23 09:21 [facility] [place] Past Medical History Medical History Abnormal uterine bleeding (AUB) Screen for STD (sexually transmitted disease) Well woman exam Alteration in vision Cervical cancer screening Otitis media Left ear pain Pale conjunctiva Dizziness Snoring Hypercholesterolemia Anxiety Asthma Somnambulism Hypertension Allergic rhinitis Migraine Obesity (BMI 30-39.9) Vitamin D deficiency Tendonitis Arm swelling Arm pain, right Family History Family History Father No problems noted. Mother Hypertension CVD (cardiovascular disease) Diabetes Maternal Grandmother Lung cancer Maternal Aunt Breast cancer Family history of problems with anesthesia: No Surgical History Surgical History History of tonsillectomy and adenoidectomy History of tubal ligation H/O breast biopsy History of section History of Problems with Anesthesia: No Social History Social History Household Members: Children Housing: Apartment Alcohol intake: current Alcohol intake frequency: holidays/special occasions only Patient Tobacco Use Status: Never used Tobacco e-Cigarette/Vaping Use: Never Used Second Hand Smoke Exposure: No Use of substances other than those prescribed or required for medical reasons: No Are you DNR?: No Advance Directives: No Advance Directives Information Provided: Yes Advance Directives on File: No service: No Current occupational status: employed Current occupation: [employer] Sexual orientation: Straight/Heterosexual Gender identity: Female Cognitive needs: No Hearing needs: No Vision needs: Yes Meds Allergies Allergy/AdvReac Type Severity Reaction Status Date / Time Seasonal Allergies Allergy Unknown Swelling Uncoded 09/20/23 15:48 Home Medications ?Medication ?Instructions ?Recorded ?Confirmed ?Last Taken ?Type fexofenadine 180 mg tablet 180 mg PO DAILY 04/19/22 09/24/22 Unknown History (Vijaya Allergy) Exam Exam Date and Time: September 23, 2023 0920 Height,Weight and Vital Signs: Height 5 ft 3 in Weight 85.729 kg Vital Signs Temperature 99.7 F 09/23/23 08:55 Pulse Rate 73 09/23/23 08:55 Respiratory Rate 16 09/23/23 08:55 Blood Pressure 131/60 09/23/23 08:55 Pulse Oximetry 97 09/23/23 08:55 Oxygen Delivery Method Room Air 09/23/23 08:55 Temperature 99.7 F 09/23/23 08:55 Pulse Rate 73 09/23/23 08:55 Respiratory Rate 16 09/23/23 08:55 Blood Pressure 131/60 09/23/23 08:55 Pulse Oximetry 97 09/23/23 08:55 Oxygen Delivery Method Room Air 09/23/23 08:55 Airway Mallampati Class: II TM Dist: >3cm Neck ROM: Full Loose/Missing/Broken Teeth: No (patient denies any loose or broken teeth) Heart: S1S2 Lungs: CTAB Assessment and Plan Assessment Anesthesia Assessment: Anesthesia Plan Discussed and Chart Reviewed Final Anesthetic Review Family History of Problems with Anesthesia: No History of Problems with Anesthesia: No NPO: Yes ASA Class: II Final Preanesthetic Review: No Changes in Pt Med Stat, Meds/Allgs Chart Reviewed, Consent Obtained/Reviewed and Anes Risks/Benef Reviewed Patient Risk: Low Procedure Risk: Low Anesthetic Plan Anesthetic Plan: GA and Agree w/ Assess. and Plan Disposition: Standard PACU
--- NOTE | 2023-09-23 09:24 | MHC.SHP ---
Pre-Procedural Eval Section A - 24 Hr Update-Section A only Date of Service: 09/23/23 The patient is an INPATIENT: No Changes since office visit: No Cold of Flu in the past 2 weeks, No New Medical Problems, No Changes in Medication and No Patient answered all questions The patient has been examined within 24 hours of the surgical procedure. The History & Physical has been completed within 30 days and I have reviewed it.: Yes Section B - Complete if H&P > 30 days Chief Complaint: Abnormal uterine and vaginal bleeding, Allergies: Allergies Allergy/AdvReac Type Severity Reaction Status Date / Time Seasonal Allergies Allergy Unknown Swelling Uncoded 09/20/23 15:48 Plan Diagnosis/Plan: Unchanged I have reviewed the history and physical and performed a pertinent physical examination on my patient. No changes have occurred unless specified. Time Spent With Patient Time: Total time managing care of this patient today ____ minutes.
--- NOTE | 2023-09-23 10:08 | PM.OP ---
Brief Operative Note Date of Service: 09/23/23 Pre-op diagnosis: Abnormal uterine bleeding, squamous Morules on EMB pathology Post-op diagnosis: same Procedure: Hysteroscopy D&C Surgeon: Deuce Madrid MD Anesthesia: GLMA Was an Stave And Bolt Equalizer used for this Procedure?: No Estimated blood loss (mL): 0 Pathology: other (Endometrial Scrapping) Condition: stable Disposition: PACU
--- NOTE | 2023-09-23 10:09 | P.OP_ITS ---
Operative Note Operative Note Date of Service: 09/23/23 Narrative: Preop Diagnosis: Abnormal uterine bleeding, squamous Morules on EMB pathology Operation: Diagnostic Hysteroscopy, Dilataion & Curettage Post Op Diagnosis: Normal endometrial and endocervical cavity, no evidence of pathology QBL: Minimal Anesthesia: GLMA Surgeon: Deuce Madrid MD Air Conditioning Unit Assembler: None Complication: None Pathology: Endometrial Scrapings Procedure: The patient was put in the dorsal lithotomy position, scrubbed, and draped in the usual manner. A sterile speculum was inserted in the patient's vagina. The anterior lip of the cervix was grasped with a single tooth tenaculum. The cervix was dilated up to 5 mm, then the scope was inserted in the patient's uterus. Inspection revealed normal endocervical & endometrial cavity with no evidence of pathology. The scope was taken out of the uterine cavity , then sharp curetting was carried on with no complications. At the end of the procedure, all instruments were taken out of the patient uterine and vaginal cavity. The single tooth tenaculum was removed and homeostasis was assured using pressure. The patient tolerated the procedure well and was transferred to the PACU in a stable condition.
[2023-09-23 10:19] VITALS: BP 98/45; PULSE 65; RESP 16; TEMP 36.3; O2SAT 100
[2023-09-23 10:24] VITALS: BP 123/66; PULSE 67; RESP 16; O2SAT 99
[2023-09-23 10:29] VITALS: BP 133/74; PULSE 76; RESP 16; O2SAT 100
[2023-09-23] MEDS: Acetaminophen 325 MG TABLET 650 MG PO (10:30)
[2023-09-23 10:34] VITALS: BP 122/74; PULSE 70; RESP 16; O2SAT 100
[2023-09-23 10:49] VITALS: BP 130/73; PULSE 68; RESP 16; TEMP 36.3; O2SAT 100
== END 2023-09-23 11:02 | disposition home or self-care (01) ==
PROVIDERS: PCP Internal Medicine; Visit Provider Obstetrics & Gynecology
PROC: 0UDB8ZZ Extraction of Endometrium, Via Natural or Artificial Opening Endoscopic (ICD-10-PCS; CPT 58558; principal; 2023-09-23 10:00)
DX: N93.9 Abnormal uterine and vaginal bleeding, unspecified (principal); I10 Essential (primary) hypertension; E78.00 Pure hypercholesterolemia, unspecified; E55.9 Vitamin D deficiency, unspecified; F41.9 Anxiety disorder, unspecified; R42 Dizziness and giddiness; J30.2 Other seasonal allergic rhinitis; Z79.51 Long term (current) use of inhaled steroids; Z98.890 Other specified postprocedural states
CPT/HCPCS: 58558; 81025; 88305; J1100; J1885; J2250; J2405; J2704; J3010

== ENCOUNTER → 2023-09-23 08:17 | Outpatient (BNV) | payer OTHER, SELFPAY | PROVIDERS: PCP Internal Medicine; Visit Provider Obstetrics & Gynecology | DX: N93.9 Abnormal uterine and vaginal bleeding, unspecified (principal) | CPT/HCPCS: 58558 ==

== ENCOUNTER 2023-09-30 08:49 | Outpatient (AMB) | payer OTHER, SELFPAY ==
[2023-09-30 08:51] VITALS: BP 122/84; PULSE 75; O2SAT 99; BMI 29.4
--- NOTE | 2023-09-30 08:51 | A.OFFPC_ITS ---
Vital Signs 09/30/23 08:51 Height 5 ft 3 in Weight 166 lb BMI 29.4 BP 122/84 Blood Pressure Location Lt brachial Position Sitting Pulse 75 Pulse Source Pulse Oximeter Pulse Oximetry (%) 99 Oxygen Delivery Method Room Air Intake Visit Reasons: PE- NEEDS PHQ9 Safety Coordinator: Not Required per policy Accompanied by: Self / Same As Patient Allergies Seasonal Allergies Allergy (Unknown, Uncoded 09/30/23 08:52) Swelling Medication List - Last Reconciled 09/30/23 by Buck Monson MD albuterol sulfate 90 mcg/actuation 2 puffs PO Q6H PRN ascorbic acid (vitamin C) 500 mg PO .QD fexofenadine (Vijaya Allergy) 180 mg PO DAILY fluticasone propionate 50 mcg/actuation (Allergy Relief (fluticasone)) 2 sprays intranasal DAILY 1 month propranolol 10 mg PO BID 90 days Tobacco use date assessed: 03/29/23 Dental Screening Dental Screen Date: 03/29/23 HPI PE- NEEDS PHQ9 HPI Details 38-year-old overweight female with iron deficiency anemia abnormal uterine bleeding hypertension asthma hypercholesterolemia coming in for physical exam last seen. Review of the notes has had dilatation and curettage under gynecology showing endometrium mildly disordered proliferative endometrium negative for atypia. Patient was seen in the Urgent Center in September 19 left knee pain noted more than 20 lb weight loss. occ dizzy PFSH Medical History Abnormal uterine bleeding (AUB) Screen for STD (sexually transmitted disease) Well woman exam Alteration in vision Cervical cancer screening Otitis media Left ear pain Pale conjunctiva Dizziness Snoring Hypercholesterolemia Anxiety Asthma Somnambulism Hypertension Allergic rhinitis Migraine Obesity (BMI 30-39.9) Vitamin D deficiency Tendonitis Arm swelling Arm pain, right Surgical History History of tonsillectomy and adenoidectomy History of tubal ligation H/O breast biopsy History of section Family History Father No problems noted. 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 1. Little interest or pleasure in doing things: not at all 2. Feeling down, depressed, or hopeless: not at all 3. Trouble falling or staying asleep, or sleeping too much: not at all 4. Feeling tired or having little energy: not at all 5. Poor appetite or overeating: not at all 6. Feeling bad about yourself - or that you are a failure or have let yourself or your family down: not at all 7. Trouble concentrating on things, such as reading the newspaper or watching television: not at all 8. Moving or speaking so slowly that other people could have noticed. Or the opposite - being so fidgety or restless that you have been moving around a lot more than usual: not at all 9. Thoughts that you would be better off or of hurting yourself in some way: not at all Total score: 0 Depression Screening Interpretation: Negative Depression Screening Done: Yes 36440 - PHQ-9 Billing: Yes Source: Developed by Drs. Bharath Stokes, Theresa Junior, Marcos Hewitt and colleagues, with an educational lisbeth from [employer]. Thrive Questionnaire Date Thrive assessed: 03/29/23 KELLY-7 AMB Questionnaire KELLY-7 Date KELLY - 7 assessed: 09/30/23 Feeling nervous, anxious, or on edge: 0 = Not at all Not being able to stop or control worryin = Not at all Worrying too much about different things: 0 = Not at all Trouble relaxin = Not at all Being so restless that it is hard to sit still: 0 = Not at all Becoming easily annoyed or irritable: 0 = Not at all Feeling afraid as if something awful might happen: 0 = Not at all Total KELLY-7 score (0-4 normal; 5-9 mild; 10-14 moderate; 15-21 severe): 0 Source: Developed by Drs. Bharath Stokes, Theresa Junior, Marcos Hewitt and colleagues, with an educational lisbeth from [employer]. Review of Systems Const Denies poor appetite and Denies weakness Eyes Denies no additional complaints ENT Reports Normal hearing present, Denies dizziness, Denies nasal congestion, Denies tinnitus and Denies sore throat Card Denies chest pain, Denies syncope, Denies rapid heart rate and Denies dyspnea Resp Denies cough and Denies dyspnea GI Denies change in stool character, Reports constipation, Denies diarrhea, Denies nausea and Denies vomiting Denies urinary frequency, Denies difficulty voiding and Denies dysuria Neuro Reports Normal hearing present, Denies confusion, Denies dizziness, Denies syncope and Denies weakness Psych Denies confusion Physical exam (Primary Care) Vital Signs: Last Vital Signs Pulse 75 09/30/23 08:51 BP 122/84 09/30/23 08:51 Pulse Ox 99 09/30/23 08:51 Oxygen Delivery Method Room Air 09/30/23 08:51 BMI result Body Mass Index 29.4 Tobacco/Smoking Status: Tobacco use Status Tobacco use date assessed 03/29/23 09/30/23 08:52 Patient Tobacco Use Status Never used Tobacco 09/30/23 08:52 e-Cigarette/Vaping Use Never Used 09/30/23 08:52 PHQ-9: PHQ-9 Score PHQ-9: Total score 0 09/30/23 08:52 Depression Screening Interpretation: Negative Thrive Assessment: Date of Thrive Assessment Date Thrive assessed 03/29/23 09/30/23 08:52 Const General: No confusion Orientation/consciousness: No confusion HENMT Head: Yes normocephalic Ears: external ears normal and TM's normal bilaterally Face and sinus: Yes normal facial exam Mouth: moist mucous membranes Throat: Yes tonsils normal Eyes Conjunctivae: conjunctivae normal Pupils: Equal, round and reactive pupils present and Pupil accommodation reflex normal Direct Ophthalmoscopy: normal light reflex Neck Neck: No lymphadenopathy Thyroid: Thyroid normal Chest Chest palpation & inspection: normal inspection of the chest Resp Effort & Inspection: normal respiratory effort and no audible wheezes Auscultation: clear to auscultation bilaterally, no crackles, no wheezes and lung sounds not diminished Cardio Rate: regular rate Rhythm: regular rhythm Peripheral pulses: radial pulses present and dorsalis pedis present GI Palpation (GI): no masses Auscultation: normal bowel sounds and normoactive bowel sounds Rectal Exam - Female: deferred Skin General skin exam: no rashes or lesions noted Rashes: no rashes Neuro General: No confusion Cranial nerves: Yes Equal, round and reactive pupils present and Yes Normal hearing present Cognition (Neuro): normal cognition Gait exam (Neuro): Normal gait present Motor exam (neuro): 5/5 motor strength present throughout Deep tendon reflexes (DTR's): Right brachioradialis reflex intensity grade: 2+, Left brachioradialis reflex intensity grade: 2+, Right patellar reflex intensity grade: 2+ and Left patellar reflex intensity grade: 2+ Extrem General: No edema Assessment and Plan Assessment & Plan (1) Annual physical exam: Code(s): Z00.00 - Encounter for general adult medical examination without abnormal findings Plan: Patient is advised to eat healthy, keep well hydrated, keep active and have adequate sleep. (2) Iron deficiency anemia: Code(s): D50.9 - Iron deficiency anemia, unspecified Plan: Patient needs to have a follow-up blood work.PAtient cannot tolerate iron and so if iron remains low - will send to hematology for possible iron infusion (3) Abnormal uterine bleeding (AUB): Comment: Squamous Morules insufficent emb path Code(s): N93.9 - Abnormal uterine and vaginal bleeding, unspecified Plan: Patient continues to follow-up with gynecology and has had curettage recently. (4) Asthma: Code(s): J45.909 - Unspecified asthma, uncomplicated Qualifiers: Asthma severity: mild Asthma persistence: intermittent Asthma complication type: uncomplicated Qualified Code(s): J45.20 - Mild intermittent asthma, uncomplicated Plan: On albuterol and controlled (5) Hypertension: Code(s): I10 - Essential (primary) hypertension Qualifiers: Hypertension type: primary hypertension Qualified Code(s): I10 - Essential (primary) hypertension Plan: Continue with blood pressure medication. Decrease salt intake and exercise patient takes propranolol 10 mg twice a day (6) Hypercholesterolemia: Code(s): E78.00 - Pure hypercholesterolemia, unspecified Plan: Avoid fried foods, chicken skin, eggs, butter margarine, pastries and meat. Be it pork or beef they have a lot of cholesterol December last blood work Medications: Refilled propranolol 10 mg PO BID 90 days 180 tabs 1RF G43.909 - Migraine, unspecified, not intractable, without status migrainosus Coding Level of Care Code Est Pt Prev Care 18-39y(19671) Diagnoses Annual physical exam Z00.00 Iron deficiency anemia D50.9 Abnormal uterine bleeding (AUB) N93.9 Mild intermittent asthma without complication J45.20 Asthma severity: mild Asthma persistence: intermittent Asthma complication type: uncomplicated Primary hypertension I10 Hypertension type: primary hypertension Hypercholesterolemia E78.00
== END 2023-09-30 09:28 | disposition home or self-care (01) ==
PROVIDERS: PCP Internal Medicine; Visit Provider Internal Medicine
DX: Z00.00 Encounter for general adult medical examination without abnormal findings (principal); D50.9 Iron deficiency anemia, unspecified; N93.9 Abnormal uterine and vaginal bleeding, unspecified; J45.20 Mild intermittent asthma, uncomplicated; I10 Essential (primary) hypertension; E78.00 Pure hypercholesterolemia, unspecified
CPT/HCPCS: 99395

== ENCOUNTER 2023-10-05 11:25 | Outpatient (AMB) | payer OTHER, SELFPAY ==
--- NOTE | 2023-10-05 11:44 | A.OFFVIS_ITS ---
Vital Signs 10/05/23 11:46 Height 5 ft 3 in Weight 165 lb 5.547 oz BMI 29.3 BP 118/82 Intake Visit Reasons: post op Information Resources Manager Required: No Information Interpreted: non-clinical & clinical Accompanied by: Self / Same As Patient Allergies Seasonal Allergies Allergy (Unknown, Uncoded 10/05/23 11:47) Swelling HPI Comments Details: The patient is presenting post hysteroscopy D&C no complaints minimal vaginal bleeding no feverishness chills or abdominal pain. The pathology showed the following: Mildly disordered proliferative endometrium; negative for atypia or hyperplasia The following workup was done: H&H= 9.6/31.6 12/27 TSH, hCG were negative. Endometrial biopsy pathology showed the following: Scant benign endometrium with breakdown and focal squamous metaplasia, endocervical glandular epithelium, and abundant blood (see comment). COMMENT: No definitive atypia or carcinoma is identified however, squamous morular metaplasia can be associated with atypical hyperplasia, neoplasia or benign processes. The tissue is scant and may not be digital sales representative of the endometrium. Short-term follow-up with a repeat endometrial sample, as clinically appropriate. Co testing was done in 04/29 was negative. Pelvic ultrasound showed the following: Uterus: The uterus is anteverted and retroflexed. The uterus measures 14.7 x 5.5 x 7.4 cm. A regular homogeneous endometrium is identified measuring 1.0 cm. Small Nabothian cysts are seen within the cervix. FIBROIDS: There are 3 fibroids seen. 1. Location: Upper posterior body, myometrial. Size: 2.0 x 1.9 x 2.2 cm. Prior: Not seen. Fibroid characteristics: Hypoechoic. 2. Location: Posterior fundus, myometrial. Size: 2.3 x 2.3 x 2.0 cm. Prior: Not seen. Fibroid characteristics: Hypoechoic. 3. Location: Mid leftward body, myometrial. Size: 4.3 x 3.1 x 3.8 cm. Prior: 1.5 x 1.0 x 1.1 cm. Fibroid characteristics: Heterogeneously hypoechoic. Both ovaries are of normal size and echogenicity. The right ovary measures 3.7 x 1.7 x 2.9 cm for a volume of 9.5 mL. The left ovary measures 2.7 x 2.3 x 2.6 cm for a volume of 8.4 mL. There is a small amount of nonspecific free fluid in the cul-de-sac. No adnexal mass is seen. [facility] Medical History Abnormal uterine bleeding (AUB) Screen for STD (sexually transmitted disease) Well woman exam Alteration in vision Cervical cancer screening Otitis media Left ear pain Pale conjunctiva Dizziness Snoring Hypercholesterolemia Anxiety Asthma Somnambulism Hypertension Allergic rhinitis Migraine Obesity (BMI 30-39.9) Vitamin D deficiency Tendonitis Arm swelling Arm pain, right Surgical History History of tonsillectomy and adenoidectomy History of tubal ligation H/O breast biopsy History of section Family History Father No problems noted. 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 Sexual orientation: Straight/Heterosexual Gender identity: Female Cognitive needs: No Hearing needs: No Vision needs: Yes Female Reproductive History Menstrual Age of Menarche: 11 Review of Systems Const All systems reviewed & are unremarkable except as noted in HPI and below Reports as per HPI and Reports no additional complaints GI Reports no additional complaints Reports no additional complaints Physical Exam Vital Signs: Last Vital Signs BP 118/82 10/05/23 11:46 BMI result Body Mass Index 29.3 Assessment & Plan Assessment & Plan (1) Abnormal uterine bleeding (AUB): Comment: Squamous Morules insufficent on emb path D & C Path= no hyperplasia or malignancy Code(s): N93.9 - Abnormal uterine and vaginal bleeding, unspecified Category: Medical Plan: Discussed with the patient the results of the work up done and options of treatment including Lysteda, BCP's, Mirena IUD and hysterectomy. All pros, cons, risks and benefits if each option was discussed with the patient and the patient decided to proceed with surgical management. Will refer to [facility] minimally invasive tannery gummer for further management (2) Uterine fibroid: Code(s): D25.9 - Leiomyoma of uterus, unspecified Category: Medical Qualifiers: Uterine leiomyoma location: intramural, submucous, and subserous Qualified Code(s): D25.1 - Intramural leiomyoma of uterus; D25.0 - Submucous l eiomyoma of uterus; D25.2 - Subserosal leiomyoma of uterus Plan: Discussed with the patient the results of the ultrasound and the size of the louann mas. Discussed with the patient risk of myosarcoma and symptoms that are caused by myomas including but not limited to pelvic pain, pressure symptoms, abnormal uterine bleeding. In addition discussed with the patient options of treatment for myomas including: Serial ultrasounds periodically to follow-up on the size of the myoma while targeting the treatment against fibroids related symptoms ( control pills, Mirena IUD, progesterone treatment, GnRH agonist/antagonist, uterine artery embolization or endometrial ablation) versus surgical treatment including hysterectomy . All pros and cons, risks and benefits of all options were discussed with the patient. The patient decided to proceed with surgical management. Discussed with the patient the different types of hysterectomies including, vaginal, laparoscopic assisted vaginal, robotic assisted laparoscopic,& abdominal with BSO. All pros, cons, r/b of each approach were discussed the patient including evidence that morbidity is less and recovery is shorter with minimally invasive approaches to hysterectomy. Discussed with the patient the lack of availability of the robot DaVinci robot and/or minimally invasive farmworker cranberry specialist at [facility]. The patient will be referred to [facility] minimally invasive tannery gummer. Coding Level of Care Code Est Pt Level 3 (79778) Diagnoses Abnormal uterine bleeding (AUB) N93.9 Intramural, submucous, and subserous leiomyoma of uterus D25.1; D25.0; D25.2 Uterine leiomyoma location: intramural, submucous, and subserous
[2023-10-05 11:46] VITALS: BP 118/82; BMI 29.3
== END 2023-10-05 12:19 | disposition home or self-care (01) ==
PROVIDERS: PCP Internal Medicine; Visit Provider Obstetrics & Gynecology
DX: N93.9 Abnormal uterine and vaginal bleeding, unspecified (principal); D25.1 Intramural leiomyoma of uterus; D25.0 Submucous leiomyoma of uterus; D25.2 Subserosal leiomyoma of uterus
CPT/HCPCS: 99213

== ENCOUNTER → 2023-10-05 11:25 | Outpatient (BNVA) | payer OTHER, SELFPAY | PROVIDERS: PCP Internal Medicine; Visit Provider Obstetrics & Gynecology | DX: N93.9 Abnormal uterine and vaginal bleeding, unspecified (principal); D25.1 Intramural leiomyoma of uterus; D25.0 Submucous leiomyoma of uterus; D25.2 Subserosal leiomyoma of uterus | CPT/HCPCS: 99212 ==

== ENCOUNTER 2023-10-25 09:18 | Outpatient (AMB) | payer SELFPAY ==
--- NOTE | 2023-10-25 09:19 | MHC.OFFWIV ---
Intake Vital Signs 10/25/23 09:21 Height 5 ft 3 in Weight 170 lb BMI 30.1 BP 120/90 H Blood Pressure Location Lt brachial Position Sitting Pulse 74 Pulse Source Pulse Oximeter Temp 98.6 F Temp Source Oral Pulse Oximetry (%) 99 Oxygen Delivery Method Room Air Intake Visit Reasons: EP- headaches, sore throat, RT ear pain Intake Note: Patient here for sore throat, cough and right ear pain. Patient Tobacco Use Status: Never used Tobacco Allergies Seasonal Allergies Allergy (Unknown, Uncoded 10/25/23 09:21) Swelling Do you need a note to return to daycare/school/sports/work: Yes HPI HPI Comments History of Present Illness Details Patient is a 38-year-old female complaining 4 days of headaches, sore throat, a tickle in her throat that is making her cough, coughing spells at night and right ear pain. She denies any fevers, shortness of breath, head congestion or chest congestion. She denies a history of asthma or COPD however she states she does have a albuterol inhaler at home that she supposed to use when her allergies get really bad. She has not been using it because she ran out of it and has not gotten a refill. She has been taking cough drops and Tylenol without much relief. She states she did test for COVID 3 days ago and again yesterday and both tests were negative. She denies any sick contacts. [facility] Medical History Abnormal uterine bleeding (AUB) Screen for STD (sexually transmitted disease) Well woman exam Alteration in vision Cervical cancer screening Otitis media Left ear pain Pale conjunctiva Dizziness Snoring Hypercholesterolemia Anxiety Asthma Somnambulism Hypertension Allergic rhinitis Migraine Obesity (BMI 30-39.9) Vitamin D deficiency Tendonitis Arm swelling Arm pain, right Surgical History History of tonsillectomy and adenoidectomy History of tubal ligation H/O breast biopsy History of section Family History Father No problems noted. 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 Sexual orientation: Straight/Heterosexual Gender identity: Female Cognitive needs: No Hearing needs: No Vision needs: Yes Female Reproductive History Menstrual Age of Menarche: 11 Review of Systems Const All systems reviewed & are unremarkable except as noted in HPI and below Physical Exam Vital Signs: Last Vital Signs Temp 98.6 F 10/25/23 09:21 Pulse 74 10/25/23 09:21 BP 120/90 H 10/25/23 09:21 Pulse Ox 99 10/25/23 09:21 Oxygen Delivery Method Room Air 10/25/23 09:21 BMI result Body Mass Index 30.1 Const General: cooperative, healthy appearing, comfortable and no acute distress Orientation/consciousness: patient oriented x3 Limitations: no limitations HEENT Head: Yes normal to inspection Ears: hearing grossly normal bilaterally, external ears normal and TM's normal bilaterally General nose exam: Normal external nose present, Normal nares present and No nasal discharge present Face and sinus: Yes normal facial exam and Yes sinuses nontender Mouth: Normal oral and palatal mucosa present and moist mucous membranes Throat: Yes tonsils normal, Yes uvula midline and Yes posterior oropharynx abnormal (Erythema) Eyes General: appearance normal, both eyes and all related structures Neck Neck: Yes normal visual inspection Resp Effort & Inspection: normal respiratory effort, able to speak in complete sentences, no respiratory distress, not tachypneic, no tripod positioning and no use of accessory muscles Auscultation: clear to auscultation bilaterally Cardio Rate: regular rate Rhythm: regular rhythm Heart sounds: normal S1 and S2 Skin General skin exam: no rashes or lesions noted Neuro General: patient oriented x3 Extrem General: Yes normal to inspection and Yes no clubbing, cyanosis or edema Results AMB Rapid Strep AMB Rapid Strep Negative Last Edit by DYLAN Montoya on 10/25/23 09:30 Results Reviewed Results Reviewed: Laboratory Last Values Strep Scn [facility] Negative 10/25/23 09:27 Assessment & Plan Assessment & Plan (1) Atypical pneumonia: Code(s): J18.9 - Pneumonia, unspecified organism Plan: Rapid strep negative, we will send flu COVID and RSV but more likely with a lingering cough, atypical pneumonia, we will send an inhaler and a Z-Abiodun to her pharmacy Plan See above Orders: Orders AMB Rapid Strep Screen Today Z13.9 - Encounter for screening, unspecified SARS-CoV2/FLU/RSV Today J06.9 - Acute upper respiratory infection, unspecified Medications: New albuterol sulfate 90 mcg/actuation (Ventolin HFA) 2 puffs inhalation Q6H 8.5 grams 0RF shortness of breath or wheezing or cough azithromycin For 250 mg dose pack: take 500 mg today (day 1), then 250 mg for 4 days (days 2-5) PO 6 tabs 0RF Coding Level of Care Code Est Pt Level 3 (54911) Diagnoses Atypical pneumonia J18.9
[2023-10-25 09:21] VITALS: BP 120/90; PULSE 74; TEMP 37; O2SAT 99; BMI 30.1
== END 2023-10-25 09:44 | disposition home or self-care (01) ==
PROVIDERS: PCP Internal Medicine; Visit Provider Physician Assistant
DX: J18.9 Pneumonia, unspecified organism (principal); Z13.9 Encounter for screening, unspecified
CPT/HCPCS: 87880; 99213

== ENCOUNTER 2023-10-25 09:42 | Outpatient (REF) | payer OTHER, SELFPAY ==
[2023-10-25 14:15] LABS: Influenza A PCR NEGATIVE (Negative); Influenza B PCR NEGATIVE (Negative); Resp Syncy Virus RNA Qual PCR NEGATIVE (Negative); SARS COV2 PCR INHOUSE NEGATIVE (Negative)
== END 2023-10-25 09:43 | disposition home or self-care (01) ==
LOC: HO.LAB 09:42
PROVIDERS: Visit Provider Physician Assistant
DX: J06.9 Acute upper respiratory infection, unspecified (principal)
CPT/HCPCS: 0241U

== ENCOUNTER 2023-12-13 13:27 | Emergency (ER) | payer OTHER, SELFPAY ==
--- NOTE | ~2023-12-13 | XR_ITS ---
EXAMINATION: XR CHEST CLINICAL INFORMATION: Fever and cough. COMPARISON: Chest radiograph 04/21/2016. TECHNIQUE: Frontal view of the chest was obtained. FINDINGS: Focal patchy airspace opacities in the right lower lung. Clear left lung. No pleural effusion or pneumothorax. Normal cardiomediastinal silhouette. No acute osseous findings. XR/XR chest 1V IMPRESSION: Patchy airspace opacities in the right lower lung concerning for pneumonia in the appropriate clinical context. Recommend follow-up to ensure resolution. Electronically signed by: Abbie Larios MD 12/13/2023 05:17 PM EDT
--- NOTE | 2023-12-13 13:29 | ECG_ITS ---
Test Reason : CHEST PAIN, SOB Blood Pressure : / mmHG Vent. Rate : 102 BPM Atrial Rate : 102 BPM P-R Int : 146 ms QRS Dur : 080 ms QT Int : 366 ms P-R-T Axes : 059 052 032 degrees QTc Int : 477 ms Sinus tachycardia Otherwise normal ECG When compared with ECG of 09-MAR-2021 00:32, No significant change was found Referred By: Anant Ortiz Electronically Signed By:LUIGI LYNN MD
[2023-12-13 13:56] VITALS: BP 154/87; PULSE 105; RESP 18; TEMP 37.7; O2SAT 100; BMI 30.7
--- NOTE | 2023-12-13 14:00 | ED_ITS ---
HPI - General Adult General Chief complaint: Chest Pain Stated complaint: Chest pain, SOB Time Seen by Provider: 12/13/23 17:28 Source: patient Mode of arrival: ambulatory Limitations: no limitations History of Present Illness ED Provider: Anant BURNHAM HPI narrative: 38-year-old female with past medical history of asthma presents to ED for coughing, wheezing, chest pain, shortness of breath. Patient states fever yesterday of 105. Patient states no relief with albuterol inhaler. Patient denies any recent long travel or recent surgery. Patient denies any pleurisy Related Data Home Medications ?Medication ?Instructions ?Recorded ?Confirmed fexofenadine 180 mg tablet 180 mg PO DAILY 04/19/22 09/30/23 ([facility] All[facility]) Previous Rx's ?Medication ?Instructions ?Recorded albuterol sulfate 90 mcg/actuation 2 puff PO Q6H PRN bronchospasm 12/04/21 aerosol inhaler #8.5 grams ascorbic acid (vitamin C) 500 mg 500 mg PO .QD #90 caps 12/27/22 capsule fluticasone propionate 50 2 spray intranasal DAILY 1 month 12/27/22 mcg/actuation nasal #16 grams spray,suspension (Allergy Relief (fluticasone)) propranolol 10 mg tablet 10 mg PO BID 90 days #180 tabs 09/30/23 albuterol sulfate 90 mcg/actuation 2 puff inhalation Q6H shortness of 10/25/23 aerosol inhaler (Ventolin HFA) breath or wheezing or cough #8.5 grams azithromycin 250 mg tablet See Rx Instructions PO .COMPLEX #6 10/25/23 tabs albuterol sulfate 90 mcg/actuation 2 puff inhalation Q6H PRN 12/13/23 aerosol inhaler shortness of breath or wheezing #8.5 grams amoxicillin 875 mg-potassium 1 tab PO Q12H 5 days #10 tabs 12/13/23 clavulanate 125 mg tablet doxycycline hyclate 100 mg capsule 100 mg PO BID 7 days #14 caps 12/13/23 prednisone 20 mg tablet 40 mg (2 x 20 mg) PO DAILY 5 days 12/13/23 #10 tabs Allergies Allergy/AdvReac Type Severity Reaction Status Date / Time Seasonal Allergies Allergy Unknown Swelling Uncoded 12/13/23 13:57 Review of Systems Review of Systems: Cough chest pain shortness of breath Yes all other systems are reviewed and are negative [facility] Past Medical History Medical History Abnormal uterine bleeding (AUB) Screen for STD (sexually transmitted disease) Well woman exam Alteration in vision Cervical cancer screening Otitis media Left ear pain Pale conjunctiva Dizziness Snoring Hypercholesterolemia Anxiety Asthma Somnambulism Hypertension Allergic rhinitis Migraine Obesity (BMI 30-39.9) Vitamin D deficiency Tendonitis Arm swelling Arm pain, right Surgical History History of tonsillectomy and adenoidectomy History of tubal ligation H/O breast biopsy History of section Family History Family History Father No problems noted. 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 Sexual orientation: Straight/Heterosexual Gender identity: Female Cognitive needs: No Hearing needs: No Vision needs: Yes Physical Exam ED Vital Signs: Vital Signs - 24 hr 12/13/23 13:56 12/13/23 17:31 Temperature 100 F 99 F Pulse Rate 105 H 93 Respiratory Rate 18 16 Blood Pressure 154/87 H 156/82 H Pulse Oximetry 100 97 Oxygen Delivery Method Room Air Room Air BMI result Body Mass Index 30.7 Const General: cooperative, healthy appearing, comfortable, no acute distress, well developed, alert, awake and Physically active Orientation/consciousness: patient oriented x3 HENMT Head: Yes normal to inspection, Yes No palpable skull fracture present, Yes normocephalic and Yes atraumatic Eyes General: appearance normal, both eyes and all related structures Neck Neck: Yes normal visual inspection, Yes full ROM, Yes no lymphadenopathy, Yes no meningeal signs, Yes trachea midline, Yes supple, No anterior neck swelling and No tender Chest Chest palpation & inspection: normal inspection of the chest and normal palpation of entire chest wall Resp Effort & Inspection: normal respiratory effort and able to speak in complete sen tences Auscultation: clear to auscultation bilaterally Cardio Jugular venous distension: no JVD Heart sounds: S1 normal heart sound present and S2 normal heart sound present GI Inspection: Yes normal to inspection Palpation (GI): Soft to palpation, not firm, nontender, no guarding and not rigid General: No CVA tenderness and Yes no CVA tenderness Back/Spine/Pelvis Back: no CVA tenderness, No CVA tenderness and No back tenderness Skin General skin exam: no rashes or lesions noted, elasticity normal and turgor normal Neuro General: patient oriented x3, gait normal, tone normal, moves all extremities, Normal light touch and pain sensation, no meningeal signs, no focal motor deficits, CN's II-XI intact bilaterally and normal sensation to monofilament Extrem General: Yes normal to inspection, Yes full ROM and Yes capillary refill normal Psych Appearance: grossly normal, well kempt and not disheveled Course Course Course Narrative: RME: done by SILVINO Beckham. 38 yold female presents ED for chest pain only when she coughs, and fever. Patient states last night fever of 105. Patient states dry cough. Patient denies any leg swelling, calf pain, coughing up blood, recent long travel, recent surgery, or pleurisy. Patient low-grade fever of 100 in the ED. chest x-ray SARs strep ordered. EKG ordered in triage. Medical Decision Making Medical Decision Making [facility] Narrative: 38-year-old female presents to ED for coughing, shortness of breath and no improvement with inhaler. Patient states also being febrile. Patient presently well-appearing. Not suspecting serious. Lungs are clear. X-ray does show pneumonia. Patient will have outpatient treatment of pneumonia with oral antibiotics. Not suspecting heart failure, myocardial infarction, PE, or respiratory failure. Patient explained worrisome signs and informed to return to the ED immediately if she has them. Differential Diagnosis Differential Diagnoses: The differential diagnosis associated with the presentation includes (Pneumonia, COVID, RSV, strep) Admission/Observation Consideration of admission/observation: Escalation of care including admission/observation considered Lab Data [facility] Lab Attestation statement: I reviewed the patient's lab results. Labs: Lab Results 12/13/23 Range/Units 14:10 Influenza Type A (PCR) NEGATIVE (Negative) Influenza Type B (PCR) NEGATIVE (Negative) RSV RNA Qual (PCR) NEGATIVE (Negative) SARS-CoV-2 RNA (RT-PCR) NEGATIVE (Negative) S. pyogenes GrpA HARLEY Negative (Negative) Independent Interpretation I performed an independent interpretation of an: Plain X-Ray Radiology Impression Discussion of test interpretation with radiology: I have reviewed the radiologist's reading. Independent Historian Clinical information obtained from an independent historian. History obtained from or confirmed by: Other (patient) External Record Review External record reviewed: Other (prior visit) Prescription Management I considered prescription management with: Antibiotic Discharge Plan Discharge Clinical Impression: Pneumonia, Asthma Patient Disposition: Home, Self-Care Instructions: Asthma (ED), Community Acquired Pneumonia (ED) Additional Instructions: Chest x-ray showed pneumonia. You will be discharged with antibiotics. You also be discharged with steroids and albuterol inhaler to help with your breathing. Return to the ED immediately for any shortness of breath, coughing up blood, leg swelling, calf pain, chest pain/shortness of breath on inspiration, weakness, dizziness, intractable fever, or any other concerning symptoms. Prescriptions: New amoxicillin-pot clavulanate 875-125 mg tablet 1 tab PO Q12H 5 Days Qty: 10 0RF doxycycline hyclate 100 mg capsule 100 mg PO BID 7 Days Qty: 14 0RF prednisone 20 mg tablet 40 mg PO DAILY 5 Days Qty: 10 0RF albuterol sulfate 90 mcg/actuation HFA aerosol inhaler 2 puff inhalation Q6H PRN (Reason: shortness of breath or wheezing) Qty: 8.5 0RF No Action albuterol sulfate 90 mcg/actuation HFA aerosol inhaler 2 puff PO Q6H PRN (Reason: bronchospasm) Qty: 8.5 0RF fluticasone propionate [Allergy Relief (fluticasone)] 50 mcg/actuation spray,suspension 2 spray intranasal DAILY 30 Days Qty: 16 8RF Rx Instructions: administer into each nostril ascorbic acid (vitamin C) 500 mg capsule 500 mg PO .QD Qty: 90 3RF fexofenadine [Vijaya Allergy] 180 mg tablet 180 mg PO DAILY propranolol 10 mg tablet 10 mg PO BID 90 Days Qty: 180 1RF azithromycin 250 mg tablet See Rx Instructions PO .COMPLEX Qty: 6 0RF Rx Instructions: For 250 mg dose pack: take 500 mg today (day 1), then 250 mg for 4 days (days 2-5) PO albuterol sulfate [Ventolin HFA] 90 mcg/actuation HFA aerosol inhaler 2 puff inhalation Q6H Qty: 8.5 0RF Stand Alone Forms: Work/School Release Interventions: ED Discharge Assessment Last Done: 12/13/23 17:31 Discharge Date/Time: 12/13/23 17:46 Print Language: Chadian
[2023-12-13 14:24] LABS: IDNOW Serial# 58CA691E; Strep A Nucleic Acid Negative (Negative)
[2023-12-13 14:54] LABS: Influenza A PCR NEGATIVE (Negative); Influenza B PCR NEGATIVE (Negative); Resp Syncy Virus RNA Qual PCR NEGATIVE (Negative); SARS COV2 PCR INHOUSE NEGATIVE (Negative)
[2023-12-13 17:31] VITALS: BP 156/82; PULSE 93; RESP 16; TEMP 37.2; O2SAT 97
== END 2023-12-13 17:46 | disposition home or self-care (01) ==
LOC: HO.ED 17:41
PROVIDERS: Physician Assistant; Emergency Provider Emergency Medicine; PCP Internal Medicine
DX: J18.9 Pneumonia, unspecified organism (principal); J45.909 Unspecified asthma, uncomplicated; R07.89 Other chest pain; R05.9 Cough, unspecified; R50.9 Fever, unspecified; Z03.818 Encounter for observation for suspected exposure to other biological agents ruled out; Z79.899 Other long term (current) drug therapy
CPT/HCPCS: 0241U; 71045; 87651; 93005; 99283

== ENCOUNTER → 2023-12-13 13:29 | Outpatient (BNV) | payer SELFPAY | PROVIDERS: PCP Internal Medicine; Visit Provider Internal Medicine Cardiovascular Disease | DX: R07.9 Chest pain, unspecified (principal); R00.0 Tachycardia, unspecified; R06.02 Shortness of breath | CPT/HCPCS: 93010 ==

== ENCOUNTER 2024-04-06 22:26 | Emergency (ER) | payer OTHER, SELFPAY ==
--- NOTE | 2024-04-06 | ECG_ITS ---
Test Reason : cp Blood Pressure : */* mmHG Vent. Rate : 119 BPM Atrial Rate : 119 BPM P-R Int : 146 ms QRS Dur : 72 ms QT Int : 338 ms P-R-T Axes : 58 53 39 degrees QTcB Int : 475 ms Sinus tachycardia Otherwise normal ECG When compared with ECG of 13-Dec-2023 13:34, No significant change was found Referred By: Generic ED Physician Electronically Signed By: KAIT SALGUERO
--- NOTE | ~2024-04-06 | XR_ITS ---
CLINICAL HISTORY: chest pain Chest X-ray, 2 Views COMPARISON: CR/ME/SR - XR CHEST 1V - 12/13/23 14:14 EDT FINDINGS: No consolidation. No pleural effusion. No pneumothorax. No cardiomegaly. No acute fracture. IMPRESSION: No acute findings. This document has been electronically signed by: Breezy Anand MD on 04/06/2024 23:46:24
[2024-04-06 22:31] VITALS: BP 159/98; PULSE 121; RESP 20; TEMP 37.4; O2SAT 100; BMI 30.7
[2024-04-06 22:49] LABS: Basophils Percent Auto 0.4 % (0-2); Eosinophils Absolute Auto 0.1 X10*3/uL (0.0-0.4); Eosinophils Percent Auto 1.4 % (0-4); Hematocrit 30.2 % (37.0-47.0); Hemoglobin 9.2 g/dl (12.0-16.0); Imm Gran Abs Auto 0.02 X10*3/uL (0.00-0.03); Imm Gran Pct Auto 0.2 % (0.0-0.4); Lymphocytes Absolute Auto 0.4 X10*3/uL (1.2-4.9); Lymphocytes Percent Auto 4.8 % (20-40); MANUAL DIFF FLAG NO; Mean Corpuscular HGB Conc 30.5 g/dl (31.0-35.0); Mean Corpuscular Hemoglobin 21.9 pg (27.0-33.0); Mean Corpuscular Volume 71.7 fL (80.0-98.0); Mean Platelet Volume 9.7 fL (9.4-12.3); Monocytes Absolute Auto 0.8 X10*3/uL (0.1-1.2); Monocytes Percent Auto 8.2 % (2-11); Neutrophils Absolute Auto 7.8 x10*3/uL (2.0-8.3); Platelet Count 319 X10*3/uL (160-400); Red Blood Count 4.21 X10*6/uL (4.20-5.50); Red Cell Distribution Width 17.6 % (11.0-16.0); White Blood Count 9.2 X10*3/uL (4.8-10.8)
[2024-04-06 23:03] LABS: Alanine Aminotransferase 14 U/L (0-31); Alkaline Phosphatase 73 U/L (39-117); Anion Gap 14 (12-20); Aspartate Amino Transferase 17 U/L (5-31); Bilirubin Total 0.3 mg/dL (0.0-1.0); Blood Urea Nitrogen 9 mg/dL (9-16); Calcium 9.1 mg/dL (8.4-10.2); Carbon Dioxide 24 mmol/L (22-29); Chloride 104 mmol/L (96-108); Creatinine Clr Calc Pharmacy 110.2; Estimated Glomerular Filt Rate > 60; Glucose Random 117 mg/dL (60-115); Sodium 138 mmol/L (135-145); Total Protein 8.4 g/dL (6.5-8.0)
[2024-04-06 23:10] LABS: Troponin-I High Sensitivity < 2.7 ng/L (<3.5-17.0)
[2024-04-06 23:25] LABS: Influenza A PCR POSITIVE (Negative); Influenza B PCR NEGATIVE (Negative); Resp Syncy Virus RNA Qual PCR NEGATIVE (Negative); SARS COV2 PCR INHOUSE NEGATIVE (Negative)
--- NOTE | 2024-04-07 00:22 | ED_ITS ---
HPI - URI/Sore Throat General Chief Complaint: Upper Respiratory Symptoms Stated Complaint: chest pain started about an hour ago/fever Time Seen by Provider: 04/06/24 23:57 Source: patient Mode of arrival: ambulatory Limitations: no limitations History of Present Illness ED Provider: HPI Narrative: Patient has been sick for last 3 days with nasal congestion cough body aches tired low-grade fever no other family member sick does have clear rhinorrhea and sore throat Related Data Home Medications ?Medication ?Instructions ?Recorded ?Confirmed fexofenadine 180 mg tablet 180 mg PO DAILY 04/19/22 09/30/23 ([facility]) Previous Rx's ?Medication ?Instructions ?Recorded albuterol sulfate 90 mcg/actuation 2 puff PO Q6H PRN bronchospasm 12/04/21 aerosol inhaler #8.5 grams ascorbic acid (vitamin C) 500 mg 500 mg PO .QD #90 caps 12/27/22 capsule fluticasone propionate 50 2 spray intranasal DAILY 1 month 12/27/22 mcg/actuation nasal #16 grams spray,suspension (Allergy Relief (fluticasone)) albuterol sulfate 90 mcg/actuation 2 puff inhalation Q6H shortness of 10/25/23 aerosol inhaler (Ventolin HFA) breath or wheezing or cough #8.5 grams azithromycin 250 mg tablet See Rx Instructions PO .COMPLEX #6 10/25/23 tabs albuterol sulfate 90 mcg/actuation 2 puff inhalation Q6H PRN 12/13/23 aerosol inhaler shortness of breath or wheezing #8.5 grams amoxicillin 875 mg-potassium 1 tab PO Q12H 5 days #10 tabs 12/13/23 clavulanate 125 mg tablet doxycycline hyclate 100 mg capsule 100 mg PO BID 7 days #14 caps 12/13/23 prednisone 20 mg tablet 40 mg (2 x 20 mg) PO DAILY 5 days 12/13/23 #10 tabs propranolol 10 mg tablet 10 mg PO BID 90 days #180 tabs 01/31/24 Allergies Allergy/AdvReac Type Severity Reaction Status Date / Time Seasonal Allergies Allergy Unknown Swelling Uncoded 04/06/24 22:34 Review of Systems 2 Review of Systems: Yes all other systems are reviewed and are negative PMFSH Past Medical History Medical History Abnormal uterine bleeding (AUB) Screen for STD (sexually transmitted disease) Well woman exam Alteration in vision Cervical cancer screening Otitis media Left ear pain Pale conjunctiva Dizziness Snoring Hypercholesterolemia Anxiety Asthma Somnambulism Hypertension Allergic rhinitis Migraine Obesity (BMI 30-39.9) Vitamin D deficiency Tendonitis Arm swelling Arm pain, right Surgical History History of tonsillectomy and adenoidectomy History of tubal ligation H/O breast biopsy History of section Family History Family History Father No problems noted. 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 Oriented X3. No acute distress. ENT: Pharynx normal. Oral Mucosa moist Neck: Normal inspection. Neck supple. CVS: Normal heart rate and rhythm. Pulses normal. Respiratory: No respiratory distress. Equal air entry bilateral, no wheezing/rales/rhonchi Abdomen: Soft and nontender. Bowel sounds are present, Skin: Skin warm and dry. Normal skin color. Normal skin turgor. Extremities: No lower extremity edema. No calf tenderness Neuro: Oriented X 3. No motor deficit. Medical Decision Making Medical Decision Making MDM Narrative: Patient with influenza A will do supportive treatment already been sick for 3 days chest x-ray negative for pneumonia Lab Data MDM Lab Attestation statement: I reviewed the patient's lab results. 04/06/24 22:43 04/06/24 22:43 Labs: Lab Results 04/06/24 Range/Units 22:43 WBC 9.2 (4.8-10.8) X10*3/uL RBC 4.21 (4.20-5.50) X10*6/uL Hgb 9.2 L (12.0-16.0) g/dl Hct 30.2 L (37.0-47.0) % MCV 71.7 L (80.0-98.0) fL MCH 21.9 L (27.0-33.0) pg MCHC 30.5 L (31.0-35.0) g/dl RDW 17.6 H (11.0-16.0) % Plt Count 319 (160-400) X10*3/uL MPV 9.7 (9.4-12.3) fL Immature Gran % (Auto) 0.2 (0.0-0.4) % Neut % (Auto) 85.0 H (45-73) % Lymph % (Auto) 4.8 L (20-40) % Dillon % (Auto) 8.2 (2-11) % Eos % (Auto) 1.4 (0-4) % Baso % (Auto) 0.4 (0-2) % Lymph # (Auto) 0.4 L (1.2-4.9) X10*3/uL Dillon # (Auto) 0.8 (0.1-1.2) X10*3/uL Eos # (Auto) 0.1 (0.0-0.4) X10*3/uL Baso # (Auto) 0.0 (0.0-0.2) X10*3/uL Abs Immat Gran (auto) 0.02 (0.00-0.03) X10*3/uL Absolute Neuts (auto) 7.8 (2.0-8.3) x10*3/uL Absolute Nucleated RBC 0.000 (0.0-0.012) X10*3/uL Nucleated RBC % (auto) 0.0 (0.0-0.2) /100WBC Sodium 138 (135-145) mmol/L Potassium 4.0 (3.3-5.1) mmol/L Chloride 104 (96-108) mmol/L Carbon Dioxide 24 (22-29) mmol/L Anion Gap 14 (12-20) BUN 9 (9-16) mg/dL Creatinine 0.68 (0.5-1.4) mg/dL Estim Creat Clear Calc 110.2 Estimated GFR > 60 Random Glucose 117 H (60-115) mg/dL Calcium 9.1 (8.4-10.2) mg/dL Total Bilirubin 0.3 (0.0-1.0) mg/dL AST 17 (5-31) U/L ALT 14 (0-31) U/L Alkaline Phosphatase 73 (39-117) U/L Troponin I High Sens < 2.7 (<3.5-17.0) ng/L Total Protein 8.4 H (6.5-8.0) g/dL Albumin 4.0 (3.5-5.0) g/dL Influenza Type A (PCR) POSITIVE A (Negative) Influenza Type B (PCR) NEGATIVE (Negative) RSV RNA Qual (PCR) NEGATIVE (Negative) SARS-CoV-2 RNA (RT-PCR) NEGATIVE (Negative) Radiology Impression Discussion of test interpretation with radiology: I have reviewed the radiologist's reading. Radiologist Impression: NAD Discharge Plan Discharge Clinical Impression: Influenza Patient Disposition: Home, Self-Care Instructions: Influenza (DC) Additional Instructions: You have influenza A Drink plenty of fluids Tylenol/Motrin for body aches OTC Cough drops for cough Prescriptions: No Action albuterol sulfate 90 mcg/actuation HFA aerosol inhaler 2 puff PO Q6H PRN (Reason: bronchospasm) Qty: 8.5 0RF fluticasone propionate [Allergy Relief (fluticasone)] 50 mcg/actuation spray,suspension 2 spray intranasal DAILY 30 Days Qty: 16 8RF Rx Instructions: administer into each nostril ascorbic acid (vitamin C) 500 mg capsule 500 mg PO .QD Qty: 90 3RF propranolol 10 mg tablet 10 mg PO BID 90 Days Qty: 180 1RF amoxicillin-pot clavulanate 875-125 mg tablet 1 tab PO Q12H 5 Days Qty: 10 0RF doxycycline hyclate 100 mg capsule 100 mg PO BID 7 Days Qty: 14 0RF prednisone 20 mg tablet 40 mg PO DAILY 5 Days Qty: 10 0RF albuterol sulfate 90 mcg/actuation HFA aerosol inhaler 2 puff inhalation Q6H PRN (Reason: shortness of breath or wheezing) Qty: 8.5 0RF fexofenadine [Vijaya Allergy] 180 mg tablet 180 mg PO DAILY azithromycin 250 mg tablet See Rx Instructions PO .COMPLEX Qty: 6 0RF Rx Instructions: For 250 mg dose pack: take 500 mg today (day 1), then 250 mg for 4 days (days 2-5) PO albuterol sulfate [Ventolin HFA] 90 mcg/actuation HFA aerosol inhaler 2 puff inhalation Q6H Qty: 8.5 0RF Interventions: ED Discharge Assessment Last Done: 04/07/24 00:36 Discharge Date/Time: 04/07/24 00:36 Print Language: Slovak
[2024-04-07 00:31] VITALS: BP 137/85; PULSE 122; RESP 20; TEMP 37.6; O2SAT 100
[2024-04-07 00:36] VITALS: BP 137/85; PULSE 122; RESP 20; TEMP 37.6; O2SAT 100
== END 2024-04-07 00:36 | disposition home or self-care (01) ==
PROVIDERS: Emergency Provider Internal Medicine; PCP Internal Medicine
DX: J10.1 Influenza due to other identified influenza virus with other respiratory manifestations (principal); R07.89 Other chest pain; M79.10 Myalgia, unspecified site; R05.9 Cough, unspecified; R00.0 Tachycardia, unspecified; R50.9 Fever, unspecified; Z03.818 Encounter for observation for suspected exposure to other biological agents ruled out; Z79.899 Other long term (current) drug therapy
CPT/HCPCS: 0241U; 71046; 80053; 84484; 85025; 93005; 99283; 99284

== ENCOUNTER → 2024-04-06 22:31 | Outpatient (BNV) | payer OTHER, SELFPAY | PROVIDERS: Emergency Provider Internal Medicine; PCP Internal Medicine; Visit Provider Internal Medicine | DX: R07.9 Chest pain, unspecified (principal) | CPT/HCPCS: 93010 ==

== ENCOUNTER → 2024-04-06 23:10 | Outpatient (BNV) | payer OTHER, SELFPAY | PROVIDERS: Emergency Provider Internal Medicine; PCP Internal Medicine; Visit Provider Radiology Diagnostic Radiology | DX: R07.9 Chest pain, unspecified (principal) | CPT/HCPCS: 71046 ==

== ENCOUNTER 2024-04-24 09:17 | Outpatient (AMB) | payer OTHER, SELFPAY ==
--- NOTE | 2024-04-24 09:24 | MHC.OFFWIV ---
Intake Vital Signs 04/24/24 09:25 Weight 177 lb BP 130/96 H Blood Pressure Location Rt brachial Position Sitting Temp 98.1 F Temp Source Oral Intake Visit Reasons: EP pain in rt ear/neck Intake Note: Patient here for right ear pain that started Tuesday. Patient Tobacco Use Status: Never used Tobacco Allergies Seasonal Allergies Allergy (Unknown, Uncoded 04/24/24 09:25) Swelling Medication List - Last Reconciled 04/24/24 by Adam Angeles MD albuterol sulfate 90 mcg/actuation 2 puffs inhalation Q6H PRN albuterol sulfate 90 mcg/actuation (Ventolin HFA) 2 puffs inhalation Q6H propranolol 10 mg PO BID 90 days Do you need a note to return to daycare/school/sports/work: Yes HPI EP pain in rt ear/neck HPI Details Patient is a 38-year-old female came in today to be evaluated for pain right ear Which started last week Patient says that now she has a whooshing sound in her ear And pain has extended to words her right neck and behind the ear Review system reveals no fever no chills no nausea no vomiting no sore throat no cough no headache On examination patient have mild erythema inside the right ear Neck is fully mobile I am treating her with 5 days of amoxicillin and 5 days of diclofenac for inflammation and pain If not better patient is to follow-up with PCP [facility] Medical History Abnormal uterine bleeding (AUB) Screen for STD (sexually transmitted disease) Well woman exam Alteration in vision Cervical cancer screening Otitis media Left ear pain Pale conjunctiva Dizziness Snoring Hypercholesterolemia Anxiety Asthma Somnambulism Hypertension Allergic rhinitis Migraine Obesity (BMI 30-39.9) Vitamin D deficiency Tendonitis Arm swelling Arm pain, right Surgical History History of tonsillectomy and adenoidectomy History of tubal ligation H/O breast biopsy History of section Family History Father No problems noted. 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 Sexual orientation: Straight/Heterosexual Gender identity: Female Cognitive needs: No Hearing needs: No Vision needs: Yes Female Reproductive History Menstrual Age of Menarche: 11 Review of Systems Const All systems reviewed & are unremarkable except as noted in HPI and below Physical Exam Vital Signs: Last Vital Signs Temp 98.1 F 04/24/24 09:25 BP 130/96 H 04/24/24 09:25 Const General: no acute distress Orientation/consciousness: patient oriented x3 HEENT Other: Right ear with mild erythema no pain with tragus pressure Eyes General: appearance normal, both eyes and all related structures Neck Other: No swelling, no lymphadenopathy, supple Resp Effort & Inspection: normal respiratory effort and able to speak in complete sentences Neuro General: patient oriented x3 Psych Mental Status: mental status grossly normal Assessment & Plan Assessment & Plan (1) Ear pain, right: Code(s): H92.01 - Otalgia, right ear Plan Patient is a 38-year-old female came in today to be evaluated for pain right ear Which started last week Patient says that now she has a whooshing sound in her ear And pain has extended to words her right neck and behind the ear Review system reveals no fever no chills no nausea no vomiting no sore throat no cough no headache On examination patient have mild erythema inside the right ear Neck is fully mobile I am treating her with 5 days of amoxicillin and 5 days of diclofenac for inflammation and pain If not better patient is to follow-up with PCP Medications: New diclofenac potassium 50 mg PO BID 10 tabs 0RF 5 days amoxicillin 500 mg PO BID 10 tabs 0RF 5 days Coding Level of Care Code Est Pt Level 3 (99076) Diagnoses Ear pain, right H92.01
[2024-04-24 09:25] VITALS: BP 130/96; TEMP 36.7
== END 2024-04-24 09:53 | disposition home or self-care (01) ==
PROVIDERS: PCP Internal Medicine; Visit Provider Internal Medicine
DX: H92.01 Otalgia, right ear (principal)

== ENCOUNTER → 2024-04-24 09:17 | Outpatient (BNVA) | payer OTHER, SELFPAY | PROVIDERS: PCP Internal Medicine | DX: H92.01 Otalgia, right ear (principal) | CPT/HCPCS: 99212 ==

== ENCOUNTER 2024-05-03 10:47 | Outpatient (AMB) | payer OTHER, SELFPAY ==
--- NOTE | 2024-05-03 11:27 | A.OFFPC_ITS ---
Vital Signs 05/03/24 11:30 Height 5 ft 3 in Weight 174 lb 2 oz BMI 30.8 BP 120/72 Blood Pressure Location Lt brachial Position Sitting Temp 97.5 F Temp Source Temporal Artery Scan Intake Visit Reasons: 04/24 urgent care ear, neck and shoulder pain Intake Note: Patient is here to follow up on right ear pain radiates to neck and shoulder. 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 Tan House: Not Required per policy Accompanied by: Self / Same As Patient Allergies Seasonal Allergies Allergy (Unknown, Uncoded 05/03/24 13:21) Swelling Medication List - Last Reconciled 05/03/24 by Geovanna Veliz PA-C albuterol sulfate 90 mcg/actuation 2 puffs inhalation Q6H PRN albuterol sulfate 90 mcg/actuation (Ventolin HFA) 2 puffs inhalation Q6H propranolol 10 mg PO BID 90 days Tobacco use date assessed: 05/03/24 Dental Screening Dental Screen Date: 05/03/24 Did you have a dental visit in the last 12 months?: No Did you have a dental problem in the last 6 months where you did not have access to dental care?: No Was dental information given to patient?: No [facility] Medical History Tinnitus Abnormal uterine bleeding (AUB) Screen for STD (sexually transmitted disease) Well woman exam Alteration in vision Cervical cancer screening Otitis media Left ear pain Pale conjunctiva Dizziness Snoring Hypercholesterolemia Anxiety Asthma Somnambulism Hypertension Allergic rhinitis Migraine Obesity (BMI 30-39.9) Vitamin D deficiency Tendonitis Arm swelling Arm pain, right Surgical History History of tonsillectomy and adenoidectomy History of tubal ligation H/O breast biopsy History of section Family History Father No problems noted. 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 1. Little interest or pleasure in doing things: not at all 2. Feeling down, depressed, or hopeless: not at all 3. Trouble falling or staying asleep, or sleeping too much: not at all 4. Feeling tired or having little energy: not at all 5. Poor appetite or overeating: not at all 6. Feeling bad about yourself - or that you are a failure or have let yourself or your family down: not at all 7. Trouble concentrating on things, such as reading the newspaper or watching television: not at all 8. Moving or speaking so slowly that other people could have noticed. Or the opposite - being so fidgety or restless that you have been moving around a lot more than usual: not at all 9. Thoughts that you would be better off or of hurting yourself in some way: not at all Total score: 0 Depression Screening Interpretation: Negative Depression Screening Done: Yes 75126 - PHQ-9 Billing: Yes Source: Developed by Drs. Bharath Stokes, Theresa Junior, Marcos Hewitt and colleagues, with an educational lisbeth from [employer]. Thrive Questionnaire Date Thrive assessed: 05/03/24 I am a: Patient What is your living situation today?: I have a steady place to live Within the past 12 months, did the food you bought not last and you didn't have the money to get more?: Never true Within the past 12 months, did you worry whether your food would run out before you got money to buy more?: Never true Do you have trouble paying for medicines?: No Do you have trouble getting transportation to medical appointments?: No Do you have trouble paying your heating and electricity bill?: No Do you have trouble taking care of your child, family member or friend?: No Do you have trouble with day-to-day activities such as bathing, preparing meals, shopping, managing finances, etc.?: No Are you currently unemployed and looking for a job?: No Are you interested in more education?: No Please select the resources that you would like help with: None Currently or been in a relationship where the following occur: No concerns reported THRIVE Score: 0 AUDIT C Alcohol Use Questionnaire (AUDIT-C) 1. How often do you have a drink containing alcohol?: Never Total Score: 0 Score Reviewed/Action Taken: Yes KELLY-7 AMB Questionnaire KELLY-7 Date KELLY - 7 assessed: 05/03/24 Feeling nervous, anxious, or on edge: 0 = Not at all Not being able to stop or control worryin = Not at all Worrying too much about different things: 0 = Not at all Trouble relaxin = Not at all Being so restless that it is hard to sit still: 0 = Not at all Becoming easily annoyed or irritable: 0 = Not at all Feeling afraid as if something awful might happen: 0 = Not at all Total KELLY-7 score (0-4 normal; 5-9 mild; 10-14 moderate; 15-21 severe): 0 Source: Developed by Drs. Bharath Stokes, Theresa Junior, Marcos Hewitt and colleagues, with an educational lisbeth from [employer]. KELLY-7 Assessment Billing KELLY-7 Assessment Tool: KELLY-7 Assessment 96067 Physical exam (Primary Care) Vital Signs: Last Vital Signs Temp 97.5 F 05/03/24 11:30 BP 120/72 05/03/24 11:30 Care Plan Goal for BP management: 130/80 at goal BMI result Body Mass Index 30.8 BMI Assessment/Plan discussion: High BMI High, discussed plan: lifestyle, weight reduction, dietary, physical activity and alcohol moderation Tobacco/Smoking Status: Tobacco use Status Tobacco use date assessed 05/03/24 05/03/24 11:37 Patient Tobacco Use Status Never used Tobacco 05/03/24 11:37 e-Cigarette/Vaping Use Never Used 05/03/24 11:37 PHQ-9: PHQ-9 Score PHQ-9: Total score 0 05/03/24 11:47 Depression Screening Interpretation: Negative Thrive Assessment: Date of Thrive Assessment Date Thrive assessed 05/03/24 05/03/24 11:37 Currently or been in a relationship where the following occur: No concerns reported Coding Level of Care Code Est Pt Level 4 (57555) Complex EM visit Add On G2211 Diagnoses Ear pain, right H92.01 Tinnitus H93.19 Additional Codes PHQ-9 - 50037 - PHQ-9 Billing: Yes ([id number]) KELLY-7 Assessment Billing - KELLY-7 Assessment Tool: KELLY-7 Assessment 63392 ([id number]) Assessment & Plan Assessment & Plan (1) Ear pain, right: Code(s): H92.01 - Otalgia, right ear Category: Medical Plan: Otalgia. No evidence of otitis media, otitis externa, mastoiditis. Not consistent with shingles or herpes zoster. Not consistent with Mildred Cordero at this time as there is no rash noted. There is no facial weakness noted. Will refer to ENT. Patient instructed to return if she develops any fevers or rash. Condition is chronic and stable continue to monitor. (2) Tinnitus: Code(s): H93.19 - Tinnitus, unspecified ear Category: Medical Plan: Will refer to ENT. Condition is chronic and stable will continue to monitor. Plan Plan A referral to an ENT specialist will be provided to [facility]. 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 Pain management will continue with ibuprofen. Orders: Referrals Ear/Nose/Throat Referral H92.01 - Otalgia, right ear, H93.19 - Tinnitus, unspecified ear Patient Instructions: Patient Instructions - Continue pain management with ibuprofen as needed. - Monitor for any changes in facial swelling or rash and report any significant changes or worsening symptoms. - Attend scheduled appointment with the ENT specialist for further assessment. - Call the clinic if new symptoms develop or current symptoms worsen. Scribe Plan - Not visible on output: History of Present Illness The patient is a 38-year-old female presenting with symptoms of ear, neck, and shoulder pain. Symptoms emerged roughly two weeks prior and initially included ear pain without the characteristic noise, evolving to involve pain in the neck and shoulder. After consulting with an urgent care center, the patient was prescribed antibiotics preemptively despite an absence of any diagnosed ear infection, resulting in no improvement. The pain instead intensified. There is no recollection of previous ear infections, and she has not experienced dizziness. Though generally asymptomatic regarding head discomfort, she acknowledges minor eye pain alongside facial redness and swelling which developed over the last two weeks. 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 Her family history includes conditions possibly indicative of Fountain Cordero Sy ndrome, with noted recurrent neuralgia symptoms. 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 Review of Systems - Audiological: Reports ear pain and tinnitus. - Neurological: Denies dizziness, experiences some headache. - Dermatological: Reports facial swelling, erythema, and rash. - Ophthalmological: Reports minor eye pain. Physical Exam Appearance: Alert. Oriented X3. No acute distress. Head: Normal external exam. Normocephalic. Atraumatic. Eyes: Pupils are equal, round, and reactive to light. Extraocular movements intact. Conjunctiva and sclera normal. Eyelids normal. Ears: Bilateral tympanic membranes pearly white with a good cone of light. Tympanic membranes are intact not perforated. No erythema, soft tissue swelling or tenderness to palpation over the mastoid. There is no drainage noted. No tenderness with manipulation of the TMJ. There is no rash to the ear or signs of infection. Patient has normal hearing. Throat: Pharynx normal. Uvula midline. Moist mucous membranes. Normal voice. No rashes are noted. No trismus drooling or stridor is noted. Neck: Normal inspection. Neck supple. Full range of motion. No adenopathy. Thyroid Normal. No meningeal signs. No neck mass noted. Cardiovascular: Normal heart rate and rhythm. Heart sound normal. No murmurs noted. Pulses normal throughout. Respiratory: No respiratory distress. Painless inspiration. Breath sounds normal. No wheezes/rales/rhonchi noted. Chest nontender. No accessory muscle u simon noted or decreased air movement noted. Abdomen: Soft and nontender. Bowel sounds normal in all 4 quadrants. No distention noted. No organomegaly noted. No visible injury noted. Back: No costovertebral angle tenderness. Full range of motion noted. Skin: Skin warm and dry. Normal skin color. Normal skin turgor. Right side of face appears swollen and red. No rashes/lesions/lacerations noted. Extremities: Extremities exhibit normal range of motion. Extremities nontender. Neuro: Oriented X 3. No motor deficit. No sensory deficit. Reflexes normal. Plan A referral to an ENT specialist will be provided to address the patient's ongoing tinnitus and ear pain concerns. 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 Pain management will continue with ibuprofen. Patient was informed and verbally consented to the use of an ambient scribe for clinic note documentation during this visit. 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 I reviewed the limited benefit from current antibiotic treatment given an absence of infection. We discussed the referral to an ENT specialist for a comprehensive evaluation of the ear pain and tinnitus. I mentioned the possibility of monitoring the facial swelling, instructing the patient to seek alerter care should symptoms exacerbate especially if she develops a rash. Opti ons for [id number] pain management were reviewed, with a prescription for ibuprofen discussed for symptomatic relief. Patient Instructions - Continue pain management with ibuprofen as needed. - Monitor for any changes in facial swelling or rash and report any significant changes or worsening symptoms. - Attend scheduled appointment with the ENT specialist for further assessment. - Call the clinic if new symptoms develop or current symptoms worsen.
[2024-05-03 11:30] VITALS: BP 120/72; TEMP 36.4; BMI 30.8
== END 2024-05-03 13:10 | disposition home or self-care (01) ==
PROVIDERS: PCP Internal Medicine; Visit Provider Physician Assistant Medical
DX: H92.01 Otalgia, right ear (principal); H93.19 Tinnitus, unspecified ear

== ENCOUNTER → 2024-05-03 10:47 | Outpatient (BNVA) | payer OTHER, SELFPAY | PROVIDERS: PCP Internal Medicine; Visit Provider Physician Assistant Medical | DX: H92.01 Otalgia, right ear (principal); H93.19 Tinnitus, unspecified ear | CPT/HCPCS: 96127; 99212 ==

== ENCOUNTER 2024-11-12 11:32 | Emergency (ER) | payer SELFPAY ==
--- NOTE | ~2024-11-12 | XR_ITS ---
EXAMINATION: XR CHEST 2 VIEWS HISTORY: cough COMPARISON: Comparison is made with the prior examination dated 04/06/2024. FINDINGS: PA and lateral views of the chest are submitted. There are linear opacities in the right middle lobe, compatible with scarring. The lungs are otherwise clear. There is no pleural effusion, pneumothorax, or pulmonary vascular congestion. The heart is normal in size. The bones are intact. XR/XR chest 2V IMPRESSION: No acute cardiopulmonary abnormality. Electronically signed by: Bharath Anderson MD 11/12/2024 12:18 PM EDT
--- NOTE | 2024-11-12 11:36 | ECG_ITS ---
Test Reason : CP Blood Pressure : */* mmHG Vent. Rate : 86 BPM Atrial Rate : 86 BPM P-R Int : 160 ms QRS Dur : 74 ms QT Int : 404 ms P-R-T Axes : 44 47 32 degrees QTcB Int : 483 ms Normal sinus rhythm Prolonged QT Abnormal ECG When compared with ECG of 06-Apr-2024 22:31, No significant change was found Referred By: Generic ED Physician Electronically Signed By: LUIGI LYNN MD
[2024-11-12 11:48] VITALS: BP 129/67; PULSE 83; RESP 16; TEMP 37.1; O2SAT 99; BMI 30.5
--- NOTE | 2024-11-12 11:50 | ED_ITS ---
HPI - General Adult General Chief complaint: General Medical Stated complaint: Chest pain since fri, dry cough. sob Time Seen by Provider: 11/12/24 13:55 Source: patient Mode of arrival: ambulatory Limitations: no limitations History of Present Illness ED Provider: HPI narrative: 39-year-old woman with a history of asthma, has been using her rescue inhaler more frequently, feels like it is her asthma attack coming up, possibly seasonal allergies, no chest pain no pleurisy no fevers or chills. Nonsmoker, does not use inhaled steroids. Related Data Previous Rx's ?Medication ?Instructions ?Recorded albuterol sulfate 90 mcg/actuation 2 puff inhalation Q 6H PRN 12/13/23 aerosol inhaler shortness of breath or wheez ing #8.5 grams propranolol 10 mg tablet 10 mg PO BID 90 days #180 ta bs 10/05/24 albuterol sulfate 90 mcg/actuation 2 puff inhalation Q 6H shortness of 11/12/24 aerosol inhaler (Ventolin HFA) breath or wheezing or c ough #8.5 grams fluticasone furoate 100 1 inh inhalation DAILY #30 e a 11/12/24 mcg/actuation blister powder for inhalation prednisone 20 mg tablet 40 mg (2 x 20 mg) PO DAILY 5 days 11/12/24 #10 tabs Allergies Allergy/AdvReac Type Severity Reaction Status Date / Time Seasonal Allergies Allergy Unknown Swelling Uncoded 11/12/24 11:49 Review of Systems 2 Constitutional: Constitutional: Reports as per [facility] Past Medical History Medical History Tinnitus Abnormal uterine bleeding (AUB) Screen for STD (sexually transmitted disease) Well woman exam Alteration in vision Cervical cancer screening Otitis media Left ear pain Pale conjunctiva Dizziness Snoring Hypercholesterolemia Anxiety Asthma Somnambulism Hypertension Allergic rhinitis Migraine Obesity (BMI 30-39.9) Vitamin D deficiency Tendonitis Arm swelling Arm pain, right Surgical History History of tonsillectomy and adenoidectomy History of tubal ligation H/O breast biopsy History of section Family History Family History Father No problems noted. 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 Sexual orientation: Straight/Heterosexual Gender identity: Female Cognitive needs: No Hearing needs: No Vision needs: Yes Physical Exam ED Vital Signs: Vital Signs - 24 hr 11/12/24 11:48 11/12/24 13:49 Temperature 98.8 F 98.2 F Pulse Rate 83 75 Respiratory Rate 16 14 Blood Pressure 129/67 145/70 H Pulse Oximetry 99 100 Oxygen Delivery Method Room Air Room Air BMI result Body Mass Index 30.5 Const Other: * Gen: ?Overall well-appearing patient * HEENT: PERRLA, EOMI, MMM, uvula midline * Neck: Supple, no LAD * CV: RRR, no obvious murmurs appreciated * Resp: ?No wheezing rales rhonchi no stridor moving air well * Abd: ?Bowel sounds are present, no tenderness no rebound no rigidity * MSK: FROM, strength 5/5 all extremities * Skin: Warm, dry, intact, * Neuro: ?Alert and oriented x3, moving upper and lower extremities symmetrically, no obvious facial asymmetry noted Course Course Course Narrative: Rapid medical examination performed in triage by Angie Cuevas PA-C. Patient is a 39 year old assigned female at presenting to the emergency department with chest pain. Detailed physical exam and review of systems are deferred to the link trainer operator. EKG, labs, imaging, and swabs ordered. Patient placed back in the waiting room pending room availability and results. Medical Decision Making Medical Decision Making MDM Narrative: 2:17 PM 11/12/2024 (Dr. Shoaib Chandra): Overall well-appearing patient, sounds like she has been having asthma exacerbations, currently she is breathing very well known wheezy, chest x-ray clinical exam without any evidence for pneumonia, she is PERC negative, ECG presentation unlikely to be myocarditis or ACS, I am going to plan to start her on inhaled steroids to prevent excessive rescue inhaler use and also decrease chances she will have to be on oral steroids frequently on outpatient basis. Differential Diagnosis Differential Diagnoses: The differential diagnosis associated with the presentation includes (Myocarditis, asthma exacerbation, pneumonia, pneumothorax, ACS, PE,) Lab Data MDM Lab Attestation statement: I reviewed the patient's lab results. 11/12/24 12:09 11/12/24 12:09 Labs: Lab Results 11/12/24 Range/Units 12:09 WBC 6.7 (4.8-10.8) X10*3/uL RBC 3.94 L (4.20-5.50) X10*6/uL Hgb 10.6 L (12.0-16.0) g/dl Hct 33.3 L (37.0-47.0) % MCV 84.5 (80.0-98.0) fL MCH 26.9 L (27.0-33.0) pg MCHC 31.8 (31.0-35.0) g/dl RDW 19.5 H (11.0-16.0) % Plt Count 322 (160-400) X10*3/uL MPV 10.4 (9.4-12.3) fL Immature Gran % (Auto) 0.4 (0.0-0.4) % Neut % (Auto) 67.4 (45-73) % Lymph % (Auto) 22.3 (20-40) % [place] % (Auto) 7.4 (2-11) % Eos % (Auto) 1.5 (0-4) % Baso % (Auto) 1.0 (0-2) % Lymph # (Auto) 1.5 (1.2-4.9) X10*3/uL [place] # (Auto) 0.5 (0.1-1.2) X10*3/uL Eos # (Auto) 0.1 (0.0-0.4) X10*3/uL Baso # (Auto) 0.1 (0.0-0.2) X10*3/uL Abs Immat Gran (auto) 0.03 (0.00-0.03) X10*3/uL Absolute Neuts (auto) 4.5 (2.0-8.3) x10*3/uL Absolute Nucleated RBC 0.000 (0.0-0.012) X10*3/uL Nucleated RBC % (auto) 0.0 (0.0-0.2) /100WBC Sodium 143 (135-145) mmol/L Potassium 3.5 (3.3-5.1) mmol/L Chloride 105 (96-108) mmol/L Carbon Dioxide 30 H (22-29) mmol/L Anion Gap 12 (12-20) BUN 12 (9-16) mg/dL Creatinine 0.66 (0.5-1.4) mg/dL Estim Creat Clear Calc 112.1 Estimated GFR > 60 Random Glucose 90 (60-115) mg/dL Calcium 8.9 (8.4-10.2) mg/dL Total Bilirubin 0.2 (0.0-1.0) mg/dL AST 17 (5-31) U/L ALT 10 (0-31) U/L Alkaline Phosphatase 70 (39-117) U/L Troponin I High Sens < 2.7 (<3.5-17.0) ng/L Total Protein 7.6 (6.5-8.0) g/dL Albumin 4.0 (3.5-5.0) g/dL COVID-19 (PAULINE) Negative (Negative) COVID-19 Clin Com See Note Influenza Type A (HARLEY) Negative (Negative) Influenza Type B (HARLEY) Negative (Negative) Influenza A & B Note See Note Independent Interpretation I performed an independent interpretation of an: EKG (86 beats per minute otherwise normal ECG without dysrhythmia, AV brook blocks or ST-T changes to suspect underlying ACS, my independent interpretation) Radiology Impression Discussion of test interpretation with radiology: I have reviewed the radiologist's reading. ( XR/XR chest 2V IMPRESSION: No acute cardiopulmonary abnormality) Prescription Management I considered prescription management with: Antibiotic Chronic Conditions Patient?s care impacted by: Other (Asthma) Discharge Plan Discharge Clinical Impression: Asthma Additional Instructions: Start oral steroids tomorrow, I gave you a prescription for 5 days but you can really take them for 3 days, and started inhaled steroids starting today, once your cough improves you can discontinue oral steroids, thereafter recommend that you continue with inhaled oral steroids on regular basis though minimize use of rescue inhaler and oral steroids as well, follow up with the PCP and if you have any worsening issues concerns come back to the ER, your workup today has been reassuring Prescriptions: New fluticasone furoate 100 mcg/actuation blister with device 1 inh inhalation DAILY Qty: 30 0RF prednisone 20 mg tablet 40 mg PO DAILY 5 Days Qty: 10 0RF No Action propranolol 10 mg tablet 10 mg PO BID 90 Days Qty: 180 0RF albuterol sulfate [Ventolin HFA] 90 mcg/actuation HFA aerosol inhaler 2 puff inhalation Q6H Qty: 8.5 0RF albuterol sulfate 90 mcg/actuation HFA aerosol inhaler 2 puff inhalation Q6H PRN (Reason: shortness of breath or wheezing) Qty: 8.5 0RF Referrals: Ermias,Buck Rubin MD [Primary Care Provider, Internal Medicine] - 2 weeks Clinical Impression: Asthma Print Language: Italian
[2024-11-12 12:14] LABS: MANUAL DIFF FLAG NO
[2024-11-12 12:18] LABS: Hematocrit 33.3 % (37.0-47.0); Hemoglobin 10.6 g/dl (12.0-16.0); Imm Gran Abs Auto 0.03 X10*3/uL (0.00-0.03); Imm Gran Pct Auto 0.4 % (0.0-0.4); Lymphocytes Absolute Auto 1.5 X10*3/uL (1.2-4.9); Mean Corpuscular HGB Conc 31.8 g/dl (31.0-35.0); Mean Corpuscular Hemoglobin 26.9 pg (27.0-33.0); Mean Corpuscular Volume 84.5 fL (80.0-98.0); NRBC Abs Auto 0.000 X10*3/uL (0.0-0.012); NRBC Pct Auto 0.0 /100WBC (0.0-0.2); Platelet Count 322 X10*3/uL (160-400); Red Blood Count 3.94 X10*6/uL (4.20-5.50); White Blood Count 6.7 X10*3/uL (4.8-10.8)
[2024-11-12 12:33] LABS: COVID-19 Test Negative (Negative); IDNOW Serial# 55D5AD1C; IDNOW Serial# 58CA691E; Influenza B2 Negative (Negative)
[2024-11-12 12:40] LABS: Alanine Aminotransferase 10 U/L (0-31); Albumin Level 4.0 g/dL (3.5-5.0); Alkaline Phosphatase 70 U/L (39-117); Anion Gap 12 (12-20); Aspartate Amino Transferase 17 U/L (5-31); Blood Urea Nitrogen 12 mg/dL (9-16); Calcium 8.9 mg/dL (8.4-10.2); Carbon Dioxide 30 mmol/L (22-29); Chloride 105 mmol/L (96-108); Creatinine Clr Calc Pharmacy 112.1; Estimated Glomerular Filt Rate > 60; Potassium 3.5 mmol/L (3.3-5.1); Sodium 143 mmol/L (135-145); Total Protein 7.6 g/dL (6.5-8.0); Troponin-I High Sensitivity < 2.7 ng/L (<3.5-17.0)
[2024-11-12 13:49] VITALS: BP 145/70; PULSE 75; RESP 14; TEMP 36.8; O2SAT 100
[2024-11-12 14:33] VITALS: BP 145/70; PULSE 75; RESP 14; TEMP 36.8; O2SAT 100
--- OUTSIDE RECORDS SUMMARY | 2024-11-12 16:08 | XMS_ITS | Clinical Summary ---
Author Organization [facility] Address [address] [address] Phone Care Team Providers Care Automatic Edger Name Role Phone Buck Monson MD Primary Care Provider [phone] Allergies No known active allergies Medications propranoloL (INDERAL) 10 MG immediate release tabletIndicatio ns:migraine prevention Take 10 mg by mouth 2 (two) times a day. Indications: migraine prevention Active Social History Tobacco Use Types Packs/Day Years Used Date Smoking Tobacco: Never Assessed Education Answer Date Recorded Are you interested in more education? Not on waqas e 07/03/2022 Are you concerned about learning? Not on file 07/03/2022 No 07/03/2022 No 07/03/2022 Digital Access Answer Date Recorded No 08/01/2022 No 08/01/2022 No 08/01/2022 Reliable internet access at home? Not on file 08/01/2022 Device with a working camera? Not on file Comments Unknown Sex and Gender Information Value Date Recorded Sex Assigned at Not on file Legal Sex Female 10:00 AM EST Gender Identity Not on file Sexual Orientation Not on file Last Filed Vital Signs Vital Sign Reading Time Taken Comments Blood Pressure 124/82 04/16/2022 10:12 AM EST Pulse 70 04/16/2022 10:12 AM EST Temperature 36.7 C (98.1 F) 04/16/2022 10:12 AM EST Respiratory Rate 18 04/16/2022 10:12 AM EST Oxygen Saturation 98% 04/16/2022 10:12 AM EST Inhaled Oxygen Concentration - - Weight 70.3 kg (155 lb) 04/16/2022 10:12 AM EST Height 160 cm (5' 3 ) 04/16/2022 10:12 AM EST Body Mass Index 27.46 04/16/2022 10:12 AM EST Plan of Treatment Health Maintenance Due Date Last Done Comments Adult Td,Tdap Booster 1984 DEPRESSION SCREENING 1996 SMOKING Hx and SMOKELESS TOB ACCO SCREENING 1997 HEPATITIS C SCREENING 2002 HIV ONE-TIME SCREENING (18-6 5 YEARS) 2002 PAP SMEAR 2005 SCREENING FOR DIABETES 05/30/2019 MAMMOGRAM 2024 INFLUENZA VACCINE (#1) 2024 COVID-19 VACCINE (2023-2 5 season) 2024 HEPATITIS A VACCINES Aged Out No long er eligible based on patient's age to complete this topic HIB VACCINES Aged Out No longer eligi ble based on patient's age to complete this topic MENINGOCOCCAL VACCINES (ACWY) Aged Out No longer eligible based on patient's age to complete this topic MENINGOCOCCAL VACCINES (B) Aged Out N o longer eligible based on patient's age to complete this topic PNEUMOCOCCAL VACCINES (0-49 years) Aged Out No longer eligible based on patient's age to complete this topic Medical Devices Not on file Insurance [facility] [place] [address] [address] [place] [address] ACO [facility] Care Teams Automatic Edger Relationship Specialty Start Date End Date Buck Monson MD [address] [place] [address] PCP - General Internal Medicine 04/15/22 Additional Source Comments The information contained in this document represents components of the legal health record. It is not the complete legal health record.[facility]
== END 2024-11-12 14:37 | disposition home or self-care (01) ==
PROVIDERS: Physician Assistant Medical; Emergency Provider Emergency Medicine; PCP Internal Medicine
DX: J45.909 Unspecified asthma, uncomplicated (principal); R07.9 Chest pain, unspecified; Z03.818 Encounter for observation for suspected exposure to other biological agents ruled out
CPT/HCPCS: 71046; 80053; 84484; 85025; 87502; 87635; 93005; 99283; 99284

== ENCOUNTER → 2024-11-12 11:36 | Outpatient (BNV) | payer SELFPAY | PROVIDERS: Emergency Provider Emergency Medicine; PCP Internal Medicine; Visit Provider Internal Medicine Cardiovascular Disease | DX: R94.31 Abnormal electrocardiogram [ECG] [EKG] (principal); R07.9 Chest pain, unspecified | CPT/HCPCS: 93010 ==

== ENCOUNTER → 2024-11-12 11:51 | Outpatient (BNV) | payer SELFPAY | PROVIDERS: PCP Internal Medicine; Visit Provider Radiology Diagnostic Radiology | DX: R05.9 Cough, unspecified (principal) | CPT/HCPCS: 71046 ==

== ENCOUNTER 2025-02-20 08:23 | Outpatient (REF) | payer OTHER, SELFPAY ==
[2025-02-20 10:06] LABS: MANUAL DIFF FLAG NO
[2025-02-20 11:03] LABS: Hematocrit 35.8 % (37.0-47.0); Hemoglobin 11.1 g/dl (12.0-16.0); Imm Gran Abs Auto 0.02 X10*3/uL (0.00-0.03); Imm Gran Pct Auto 0.3 % (0.0-0.4); Lymphocytes Absolute Auto 1.3 X10*3/uL (1.2-4.9); Mean Corpuscular HGB Conc 31.0 g/dl (31.0-35.0); Mean Corpuscular Hemoglobin 26.6 pg (27.0-33.0); Mean Corpuscular Volume 85.9 fL (80.0-98.0); NRBC Abs Auto 0.000 X10*3/uL (0.0-0.012); NRBC Pct Auto 0.0 /100WBC (0.0-0.2); Platelet Count 348 X10*3/uL (160-400); Red Blood Count 4.17 X10*6/uL (4.20-5.50); Reticulocytes Absolute 0.046 X10*6/uL (0.026-0.095); White Blood Count 5.8 X10*3/uL (4.8-10.8)
[2025-02-20 11:20] LABS: Appearance Urine Cloudy; Glucose Urine UA Negative (Negative); PH 8.5 (5.0-9.0); Specific Gravity - Urine 1.015 (1.005-1.025); UMIC TRIGGER UACC YES
[2025-02-20 11:23] LABS: UACC Culture Trigger YES
[2025-02-20 11:54] LABS: Alanine Aminotransferase 14 U/L (0-31); Albumin Level 4.1 g/dL (3.5-5.0); Alkaline Phosphatase 68 U/L (39-117); Anion Gap 11 (12-20); Aspartate Amino Transferase 17 U/L (5-31); Blood Urea Nitrogen 10 mg/dL (9-16); Calcium 8.8 mg/dL (8.4-10.2); Carbon Dioxide 28 mmol/L (22-29); Chloride 104 mmol/L (96-108); Cholesterol 229 mg/dL (<200); Estimated Glomerular Filt Rate > 60; HDL Cholesterol 59 mg/dL (>40); Iron 33 mcg/dL (30-160); Magnesium 2.2 mg/dL (1.6-2.6); Percent Iron Saturation 9 % (15-50); Potassium 4.3 mmol/L (3.3-5.1); Sodium 139 mmol/L (135-145); Total Iron Binding Capacity 361 mcg/dL (228-428); Total Protein 7.4 g/dL (6.5-8.0); Triglycerides 65 mg/dL (<150); Unsaturated Iron Binding 328 ug/dL
[2025-02-20 12:05] LABS: Ferritin 28 ng/mL (10-250); Free T4 (Free Thyroxine) 0.97 ng/dL (0.71-1.85); Thyroid Stimulating Hormone 0.67 uIU/mL (0.32-4.0)
[2025-02-20 12:24] LABS: Folate 11.4 ng/mL (> or = 4.0); Vitamin B12 513 pg/mL (200-900)
== END 2025-02-20 08:24 | disposition home or self-care (01) ==
LOC: HO.LAB 08:23
PROVIDERS: PCP Internal Medicine; Visit Provider Internal Medicine
DX: Z00.00 Encounter for general adult medical examination without abnormal findings (principal); Z12.31 Encounter for screening mammogram for malignant neoplasm of breast; E78.00 Pure hypercholesterolemia, unspecified; R30.0 Dysuria; J45.20 Mild intermittent asthma, uncomplicated; G43.909 Migraine, unspecified, not intractable, without status migrainosus; D50.9 Iron deficiency anemia, unspecified; N93.9 Abnormal uterine and vaginal bleeding, unspecified; D25.1 Intramural leiomyoma of uterus; D25.0 Submucous leiomyoma of uterus; D25.2 Subserosal leiomyoma of uterus; I10 Essential (primary) hypertension; E66.9 Obesity, unspecified; J30.9 Allergic rhinitis, unspecified; Z68.32 Body mass index [BMI] 32.0-32.9, adult
CPT/HCPCS: 36415; 80053; 80061; 81001; 81003; 82306; 82607; 82728; 82746; 83036; 83540; 83735; 84439; 84443; 85025; 85045; 87086; 99396

== ENCOUNTER 2025-02-20 08:23 | Outpatient (AMB) | payer OTHER, SELFPAY ==
--- OUTSIDE RECORDS SUMMARY | 2025-02-20 08:35 | XMS_ITS | Clinical Summary ---
Author Organization Loc[facility] Address [address] [address] Phone Care Team Providers Care Flue Blower Name Role Phone Buck Monson MD Primary Care Provider [phone] Allergies No known active allergies Medications propranoloL [...] 2024 INFLUENZA VACCINE (#1) 2024 COVID-19 VACCINE (2024-2 6 season) 2024 HEPATITIS A VACCINES Aged Out [...] topic Medical Devices Not on file Insurance [facility] [place] [address] [place] [address] A[place] [facility] ACO Care Teams Flue Blower Relationship Specialty Start Date End Date Buck Monson MD [address] [place] [address] PCP - General Internal Medicine 04/15/22 Additional Source Comments The information contained in this document represents components of the legal health record. It is not the complete legal health record.[facility]
[2025-02-20 08:37] VITALS: BP 132/68; PULSE 68; TEMP 36.3; O2SAT 99; BMI 32.4
--- NOTE | 2025-02-20 08:37 | MHC.PC.OV ---
Vital Signs 02/20/25 08:37 Height 5 ft 3 in Weight 183 lb BMI 32.4 BP 132/68 Blood Pressure Location Lt brachial Position Sitting Pulse 68 Pulse Source Pulse Oximeter Temp 97.3 F Temp Source Temporal Artery Scan Pulse Oximetry (%) 99 Oxygen Delivery Method Room Air Intake Visit Reasons: Physical Intake Note: Patient is here today for a physical. 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 Decorative: Not Required per policy Accompanied by: Self / Same As Patient Allergies Seasonal Allergies Allergy (Unknown, Uncoded 02/20/25 08:37) Swelling Medication List - Last Reconciled 02/20/25 by Buck Monson MD ascorbate calcium (vitamin C) 500 mg PO DAILY ascorbic acid-collagen 30-833.3 mg tabs PO budesonide-formoterol 160-4.5 mcg/actuation (Symbicort) 2 puffs inhalation Q12H iron, carbonyl (Ferretts Carbonyl Iron) 18 mg PO DAILY propranolol 10 mg PO BID 90 days Tobacco use date assessed: 02/20/25 Dental Screening Dental Screen Date: 05/03/24 HPI Physical HPI Details R ear air sounds , no pain, no fluid discharge, hearing good, good HPI Comments History of Present Illness Details History of Present Illness The patient is a 39 year old female presenting for a physical examination. Her past medical history is significant for obesity, hypertension, hypercholesterolemia, asthma, iron deficiency anemia, and abnormal uterine bleeding secondary to uterine myomas. Her asthma is poorly controlled, with numerous visits to the emergency room and urgent care centers over the past year for exacerbations. These visits were for symptoms including cough, shortness of breath, and wheezing, and she received treatments for asthma exacerbation, pneumonia, URI, and flu. Her current asthma medications include an albuterol inhaler and Flovent. The patient was seen by gynecology in September 2023 for abnormal uterine bleeding secondary to myomas, and treatment options including embolization versus surgical intervention were discussed. Due to the heavy bleeding, she has iron deficiency anemia, with her last hemoglobin level in November 2024 at 10.6 g/dL. She reports feeling tired all the time and is supplementing with an 18 mg iron gummy and vitamin C. She has a history of recurrent right ear pain, with urgent care visits in April 2024 and October 2023. She was treated with an anti-inflammatory and amoxicillin during one visit. A referral to an ENT was made, but follow-up is unknown. Her last cholesterol check was in December 2022 with an LDL of 125 mg/dL. She is currently on propranolol 10 mg twice daily for hypertension. Her family history is positive for a mother with heart problems, an aunt with breast cancer, and a grandmother with lung cancer. Health Maintenance An order was placed for a screening mammogram, as the patient is now 39 years old. The patient was informed she is overdue for a tetanus immunization and that a pneumonia vaccine is recommended due to her asthma. She deferred these vaccines at today's visit but was encouraged to get them in the future. The patient was counseled on signing up for and using the patient portal for communication. Social History - Substance Use: The patient denies any use of alcohol, tobacco, or recreational drugs. - Diet: The patient reports eating fast food due to lack of time for meal preparation. - Exercise: The patient was advised to keep active to improve circulation. - Home Environment: The patient does not have pets at home. Results - Labs (November 2024): Hemoglobin was 10.6 g/dL and hematocrit was 33.3%. - Labs (November 2024): Electrolytes, renal function, blood sugar, and liver function were within normal limits. - Labs (December 2022): LDL cholesterol was 125 mg/dL. [facility] Medical History (Updated 02/20/25 @ 09:01 by Buck Monson MD) Obesity (BMI 30-39.9) Tinnitus Abnormal uterine bleeding (AUB) Screen for STD (sexually transmitted disease) Well woman exam Alteration in vision Cervical cancer screening Otitis media Left ear pain Pale conjunctiva Dizziness Snoring Hypercholesterolemia Anxiety Asthma Somnambulism Hypertension Allergic rhinitis Migraine Vitamin D deficiency Tendonitis Arm swelling Arm pain, right Surgical History History of tonsillectomy and adenoidectomy History of tubal ligation H/O breast biopsy History of section Family History Father No problems noted. 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 1. Little interest or pleasure in doing things: not at all 2. Feeling down, depressed, or hopeless: not at all 3. Trouble falling or staying asleep, or sleeping too much: not at all 4. Feeling tired or having little energy: nearly every day 5. Poor appetite or overeating: not at all 6. Feeling bad about yourself - or that you are a failure or have let yourself or your family down: not at all 7. Trouble concentrating on things, such as reading the newspaper or watching television: not at all 8. Moving or speaking so slowly that other people could have noticed. Or the opposite - being so fidgety or restless that you have been moving around a lot more than usual: not at all 9. Thoughts that you would be better off or of hurting yourself in some way: not at all Total score: 3 Source: Developed by Drs. Bharath Stokes, Theresa Junior, Marcos Hewitt and colleagues, with an educational lisbeth from [employer]. Thrive Questionnaire Date Thrive assessed: 05/03/24 I am a: Patient What is your living situation today?: I have a steady place to live Within the past 12 months, did the food you bought not last and you didn't have the money to get more?: Never true Within the past 12 months, did you worry whether your food would run out before you got money to buy more?: Never true Do you have trouble paying for medicines?: No Do you have trouble getting transportation to medical appointments?: No Do you have trouble paying your heating and electricity bill?: No Do you have trouble taking care of your child, family member or friend?: No Do you have trouble with day-to-day activities such as bathing, preparing meals, shopping, managing finances, etc.?: No Are you currently unemployed and looking for a job?: No Are you interested in more education?: No Please select the resources that you would like help with: None Currently or been in a relationship where the following occur: No concerns reported THRIVE Score: 0 AUDIT C Alcohol Use Questionnaire (AUDIT-C) 1. How often do you have a drink containing alcohol?: Never Total Score: 0 KELLY-7 AMB Questionnaire KELLY-7 Date KELLY - 7 assessed: 05/03/24 Feeling nervous, anxious, or on edge: 1 = Several days Not being able to stop or control worryin = Several days Worrying too much about different things: 1 = Several days Trouble relaxin = Several days Being so restless that it is hard to sit still: 0 = Not at all Becoming easily annoyed or irritable: 1 = Several days Feeling afraid as if something awful might happen: 0 = Not at all Total KELLY-7 score (0-4 normal; 5-9 mild; 10-14 moderate; 15-21 severe): 5 Source: Developed by Drs. Bharath Stokes, Theresa Junior, Marcos Hewitt and colleagues, with an educational lisbeth from [employer]. Review of Systems Narrative Review of Systems - Constitutional: Reports constant fatigue. - Constitutional: Denies fevers. - Eyes: Reports good vision. - Ears, Nose, Throat: Reports a sensation of a plugged right ear and air trying to come out, which can be heard as a humming sound, but denies pain, discharge, or hearing loss. - Ears, Nose, Throat: Denies dysphagia. - Cardiovascular: Denies chest pain, heaviness, or discomfort. - Respiratory: Denies paroxysmal nocturnal dyspnea. - Gastrointestinal: Denies nausea, vomiting, or heartburn. - Gastrointestinal: Reports normal bowel movements. - Genitourinary: Reports nocturia twice per night. - Genitourinary: Denies other urinary problems. - Neurological: Reports occasional dizziness, which is unchanged in frequency. - Neurological: Denies syncope. - Musculoskeletal: Denies swelling in her legs. Const Denies poor appetite and Denies weakness Eyes Denies no additional complaints ENT Reports Normal hearing present, Denies dizziness, Denies nasal congestion, Denies tinnitus and Denies sore throat Card Denies chest pain, Denies syncope, Denies rapid heart rate and Denies dyspnea Resp Denies cough and Denies dyspnea GI Denies change in stool character, Reports constipation, Denies diarrhea, Denies nausea and Denies vomiting Denies urinary frequency, Denies difficulty voiding and Denies dysuria Neuro Reports Normal hearing present, Denies confusion, Denies dizziness, Denies syncope and Denies weakness Psych Denies confusion Physical exam (Primary Care) Vital Signs: Last Vital Signs Temp 97.3 F 02/20/25 08:37 Pulse 68 02/20/25 08:37 BP 132/68 02/20/25 08:37 Pulse Ox 99 02/20/25 08:37 Oxygen Delivery Method Room Air 02/20/25 08:37 BMI result Body Mass Index 32.4 Tobacco/Smoking Status: Tobacco use Status Tobacco use date assessed 02/20/25 02/20/25 08:41 Patient Tobacco Use Status Never used Tobacco 02/20/25 08:57 e-Cigarette/Vaping Use Never Used 02/20/25 08:57 PHQ-9: PHQ-9 Score PHQ-9: Total score 3 02/20/25 08:47 Thrive Assessment: Date of Thrive Assessment Date Thrive assessed 05/03/24 02/20/25 08:41 Currently or been in a relationship where the following occur: No concerns reported Narrative Physical Exam General: Cooperative, healthy appearing, comfortable, no acute distress and well developed Orientation: Patient oriented x3 Limitations: No limitations Head: Normal to inspection Ears: Hearing grossly normal bilaterally, but patient reports a sensation of air in the right ear, no pain, no fluids, and no hearing loss Nose: Normal external nose present Face and sinus: Normal facial exam Eyes: Appearance normal, both eyes and all related structures Neck: Normal visual inspection and Yes full ROM Respiratory: Normal respiratory effort and able to speak in complete sentences. Clear to auscultation bilaterally Cardiovascular: Regular rate and rhythm. Normal S1 and S2 GI: Normal to inspection. Soft to palpation and nontender Skin: No rashes or lesions noted Neuro: Patient oriented x3 Extremities: Normal to inspection Const General: No confusion Orientation/consciousness: No confusion HENMT Head: Yes normocephalic Ears: external ears normal and TM's normal bilaterally Face and sinus: Yes normal facial exam Mouth: moist mucous membranes Throat: Yes tonsils normal Eyes Conjunctivae: conjunctivae normal Pupils: Equal, round and reactive pupils present and Pupil accommodation reflex normal Direct Ophthalmoscopy: normal light reflex Neck Neck: No lymphadenopathy Thyroid: Thyroid normal Chest Chest palpation & inspection: normal inspection of the chest Resp Effort & Inspection: normal respiratory effort and no audible wheezes Auscultation: clear to auscultation bilaterally, no crackles, no wheezes and lung sounds not diminished Cardio Rate: regular rate Rhythm: regular rhythm Peripheral pulses: radial pulses present and dorsalis pedis present GI Palpation (GI): no masses Auscultation: normal bowel sounds and normoactive bowel sounds Rectal Exam - Female: deferred Skin General skin exam: no rashes or lesions noted Rashes: no rashes Neuro General: No confusion Cranial nerves: Yes Equal, round and reactive pupils present and Yes Normal hearing present Cognition (Neuro): normal cognition Gait exam (Neuro): Normal gait present Motor exam (neuro): 5/5 motor strength present throughout Deep tendon reflexes (DTR's): Right brachioradialis reflex intensity grade: 2+, Left brachioradialis reflex intensity grade: 2+, Right patellar reflex intensity grade: 2+ and Left patellar reflex intensity grade: 2+ Extrem General: No edema Coding Level of Care Code Est Pt Prev Care 40-64y(75432) Diagnoses Annual physical exam Z00.00 Mild intermittent asthma without complication J45.20 Asthma complication type: uncomplicated Asthma persistence: intermittent Asthma severity: mild Migraine G43.909 Iron deficiency anemia D50.9 Abnormal uterine bleeding (AUB) N93.9 Intramural, submucous, and subserous leiomyoma of uterus D25.1; D25.0; D25.2 Uterine leiomyoma location: intramural, submucous, and subserous Primary hypertension I10 Hypertension type: primary hypertension Hypercholesterolemia E78.00 Breast cancer screening by mammogram Z12.31 Obesity (BMI 30-39.9) E66.9 Allergic rhinitis J30.9 Assessment & Plan Assessment & Plan (1) Annual physical exam: Code(s): Z00.00 - Encounter for general adult medical examination without abnormal findings Category: Medical Plan: Keep well hydrated, keep active and eat healthy (2) Asthma: Code(s): J45.909 - Unspecified asthma, uncomplicated Category: Medical Qualifiers: Asthma complication type: uncomplicated Asthma persistence: intermittent Asthma severity: mild Qualified Code(s): J45.20 - Mild intermittent asthma, uncomplicated Plan: Patient on albuterol inhaler and Flovent but with repeated exacerbations patient is advised to upgrade the controller inhaler. (3) Migraine: Code(s): G43.909 - Migraine, unspecified, not intractable, without status migrainosus Category: Medical Plan: Patient is advised to eat healthy, keep well hydrated, keep active and have adequate sleep. (4) Iron deficiency anemia: Code(s): D50.9 - Iron deficiency anemia, unspecified Category: Medical Plan: Advised to get repeat blood work (5) Abnormal uterine bleeding (AUB): Comment: Squamous Morules insufficent on emb path D & C Path= no hyperplasia or malignancy Code(s): N93.9 - Abnormal uterine and vaginal bleeding, unspecified Category: Medical Plan: Continue to follow-up with gynecology (6) Uterine fibroid: Code(s): D25.9 - Leiomyoma of uterus, unspecified Category: Medical Qualifiers: Uterine leiomyoma location: intramural, submucous, and subserous Qualified Code(s): D25.1 - Intramural leiomyoma of uterus; D25.0 - Submucous leiomyoma of uterus; D25.2 - Subserosal leiomyoma of uterus Plan: Continue to follow-up with gynecology (7) Hypertension: Code(s): I10 - Essential (primary) hypertension Category: Medical Qualifiers: Hypertension type: primary hypertension Qualified Code(s): I10 - Essential (primary) hypertension Plan: Continue with blood pressure medication. Decrease salt intake and exercise patient is on propranolol 10 mg twice a day (8) Hypercholesterolemia: Code(s): E78.00 - Pure hypercholesterolemia, unspecified Category: Medical Plan: Avoid fried foods, chicken skin, eggs, butter margarine, pastries and meat. Be it pork or beef they have a lot of cholesterol LDL goal of less than 130 and triglyceride of less than 150 (9) Breast cancer screening by mammogram: Code(s): Z12.31 - Encounter for screening mammogram for malignant neoplasm of breast Category: Medical Plan: Patient is reminded about mammogram (10) Obesity (BMI 30-39.9): Code(s): E66.9 - Obesity, unspecified Category: Medical Plan: Diet and exercise (11) Allergic rhinitis: Code(s): J30.9 - Allergic rhinitis, unspecified Category: Medical Plan Plan Patient was informed and verbally consented to the use of an ambient scribe for clinic note documentation during this visit. 1. Asthma The patient's asthma is not well-controlled, evidenced by multiple emergency room and urgent care visits for exacerbations over the past year. The current regimen of albuterol and Flovent will be changed to Symbicort, which can be used as both a controller and rescue inhaler. The patient was instructed to use Symbicort twice daily and to rinse her mouth after each use. She was advised to notify the office via the patient portal if the medication is not covered by insurance. 2. Iron Deficiency Anemia And Abnormal Uterine Bleeding The patient's anemia is secondary to abnormal uterine bleeding caused by uterine myomas, which contributes to her constant fatigue. The patient will continue to follow up with gynecology for definitive management of the fibroids, which she desires to have removed. She will continue her current OTC iron supplement. Blood work, including a CBC, iron studies, and B12 level, was ordered for today. 3. Allergic Rhinitis And Eustachian Tube Dysfunction The patient's symptoms of a plugged right ear are attributed to Eustachian tube dysfunction secondary to underlying allergies. It was recommended that she take an allergy medication, such as Vijaya, on a daily basis year-round to control symptoms and improve drainage. 4. Hypercholesterolemia, Hypertension, And Obesity The patient will continue her current dose of propranolol 10 mg twice daily for hypertension management. Continued emphasis was placed on lifestyle modifications, including a healthy diet and regular physical activity, to manage her cholesterol and weight. Lab work ordered today includes a lipid panel. Discussion Notes I reviewed the patient's chart, noting her multiple recent visits to urgent care and the ER for respiratory issues, and explained that her asthma is not well-controlled. I discussed changing her controller inhaler from Flovent to Symbicort and explained that under new guidelines, Symbicort can be used for both daily control and as a rescue inhaler, with the goal of reducing exacerbations. I advised her to rinse her mouth after use and to contact me via the portal if her insurance does not cover the new medication. We discussed her iron deficiency anemia is a result of heavy uterine bleeding from fibroids, which is also causing her constant fatigue. I stressed the importance of following up with her transportation engineering technician for definitive treatment, which she is motivated to do. I explained that her recurrent ear fullness is likely from Eustachian tube dysfunction due to year-round allergies and recommended daily use of an allergy medication to manage this. I advised her that she is due for a screening mammogram now that she is 39 and placed an order. We discussed that she is overdue for a tetanus vaccine and that a pneumonia vaccine is recommended for patients with asthma; she deferred these today but was encouraged to complete them for preventative health. I also reiterated the importance of a healthy diet, hydration, and physical activity. I ordered labs for today to check her blood count, iron levels, B12, and cholesterol. Patient Instructions - I am sending a new inhaler called Symbicort to your pharmacy. - Use the Symbicort inhaler twice a day, every day. - You can also use this same inhaler if you have an asthma attack. - Always rinse your mouth with water and spit it out after using the inhaler. - Please sign up for the patient portal at the front desk admin so you can send messages if needed. - If your insurance does not pay for Symbicort, please send a message through the portal. - Continue to take your propranolol for blood pressure. - Continue taking your iron supplement with Vitamin C. - It is important to follow up with your gynecology doctor about your heavy periods and fibroids. - Take an [id number] allergy pill like Vijaya every day to help with your ear stuffiness. - Go to the lab to get your blood work done today. - We have ordered a mammogram for you. - Remember to get your tetanus and pneumonia shots in the near future. - Focus on drinking plenty of water, eating healthy foods, and keeping yourself active. Orders: Orders Complete Blood Count Auto Diff Today E78.00 - Pure hypercholesterolemia, unspecified Ferritin Today E78.00 - Pure hypercholesterolemia, unspecified Free T4 (Free Thyroxine) Today E78.00 - Pure hypercholesterolemia, unspecified Lipid Panel Today E78.00 - Pure hypercholesterolemia, unspecified Thyroid Stimulating Hormone Today E78.00 - Pure hypercholesterolemia, unspecified Comprehensive Met. Panel Today E78.00 - Pure hypercholesterolemia, unspecified Hemoglobin A1c Today E78.00 - Pure hypercholesterolemia, unspecified Reticulocyte Count Today E78.00 - Pure hypercholesterolemia, unspecified IRON PROFILE Today E78.00 - Pure hypercholesterolemia, unspecified Vitamin B12 and Folate Today E78.00 - Pure hypercholesterolemia, unspecified Vitamin D 25-OH Total Today E78.00 - Pure hypercholesterolemia, unspecified UA CC w/rflx Micro + Cult Today E78.00 - Pure hypercholesterolemia, unspecified, R30.0 - Dysuria Magnesium Today E78.00 - Pure hypercholesterolemia, unspecified MM tomosynthesis screening BI Today Z12.31 - Encounter for screening mammogram for malignant neoplasm of breast Medications: New budesonide-formoterol 160-4.5 mcg/actuation (Symbicort) 2 puffs inhalation Q12H 10.2 grams 8RF J45.20 - Mild intermittent asthma, uncomplicated Refilled propranolol 10 mg PO BID 180 tabs 0RF 90 days G43.909 - Migraine, unspecified, not intractable, without status migrainosus Discontinued fluticasone furoate 100 mcg/actuation Discontinued Reason: Doctor's Order 1 inh inhalation DAILY 30 ea 0RF albuterol sulfate 90 mcg/actuation (Ventolin HFA) Discontinued Reason: Doctor's Order 2 puffs inhalation Q6H 8.5 grams 0RF shortness of breath or wheezing or cough
== END 2025-02-20 09:19 | disposition home or self-care (01) ==
LOC: HO.HMCH 08:24
PROVIDERS: PCP Internal Medicine; Visit Provider Internal Medicine
DX: Z00.00 Encounter for general adult medical examination without abnormal findings (principal); J45.20 Mild intermittent asthma, uncomplicated; E66.9 Obesity, unspecified; Z68.32 Body mass index [BMI] 32.0-32.9, adult; G43.909 Migraine, unspecified, not intractable, without status migrainosus; D50.9 Iron deficiency anemia, unspecified; N93.9 Abnormal uterine and vaginal bleeding, unspecified; D25.1 Intramural leiomyoma of uterus; D25.0 Submucous leiomyoma of uterus; D25.2 Subserosal leiomyoma of uterus; I10 Essential (primary) hypertension; E78.00 Pure hypercholesterolemia, unspecified; Z12.31 Encounter for screening mammogram for malignant neoplasm of breast; J30.9 Allergic rhinitis, unspecified